=== PATIENT | female | born 1985 | race Caucasian/White ===

== ENCOUNTER 2017-06-12 10:10 | Inpatient (IN) | payer BC ==
[2017-06-12] MEDS ORDERED: Labetalol 100 MG Tab PO ONE (11:20)
[2017-06-12] MEDS ORDERED: Ondansetron 4 MG/2 ML SDV IVPUSH PRN (12:11)
[2017-06-12] MEDS ORDERED: Sodium Chloride 0.9% 10 ML Syringe FLUSH PRN (12:11)
[2017-06-12] MEDS ORDERED: Nalbuphine 20 MG/1 ML Amp IVPUSH PRN (12:11)
[2017-06-12] MEDS ORDERED: Oxytocin/Lactated Ringers 10 UNIT/1,000 ML BAG IV SCH ×2 (12:15→17:00)
--- NOTE | 2017-06-12 12:50 | PCM.LDHP ---
L&D History of Present Illness - General Date of Service: 06/12/17 Admit Problem/Dx: Patient Status Order with Admit Dx/Problem 06/12/17 12:12 Patient Status [ADT] Routine Admission Diagnosis/Problem Admission Diagnosis/Problem Source of Information: Patient History Limitations: Reports: No Limitations - History of Present Illness Introduction:: 32 y/o at 37 0/7 wks who presents for monitoring after findings of elevated BP's in clinic. Patient had late entry into care with this . Was first seen around 28 weeks and is dated by 28 week ultrasound. She was also noted at that first appointment to have elevated blood pressures. When reviewing outpatient walk-in clinic notes done outside of it did seem that she had elevated blood pressures at most of these as well and so was presumed to be a chronic hypertensive. She has been watched closely this with serial ultrasounds and non-stress tests which have been appropriate. Blood pressures have mostly been in the 140s, but today were high 150's over low 100's. She was asymptomatic, but given this change was asked to present to labor and delivery for labs, serial blood pressures, and further monitoring. She is having some contractions as well. Her cervix was checked earlier in clinic and thought to be similar to last outpatient exam. She does have a history of a vaginal delivery followed by a for breech presentation. Delivery after that was a 23 week loss which was delivered vaginally. Records were requested multiple times during her but never able to be received. Lastly is also notable for chronic narcotic use. Patient has a history of shoulder pain which she is typically seen in the pain management clinic in [place]. Has been on [place] throughout the as she did not realize she was . When pain clinic did realize she was at about 37 weeks they did decline further refills and so we have been managing her narcotics and trying to wean them down. She is currently on 2 alternating with 2.5 tablets of a 7.5 mg [place] every other day. She is overall doing well with this. 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: 3 (2 living children) LMP (Approximate): Musculoskeletal History: Reports: Other (See Below) Other Musculoskeletal History: Buldging disc - Past Surgical History Female Surgical History: Reports: Section Social & Family History - Family History Family Medical History: Noncontributory Cardiac: Reports: Hypertension, [place] Endocrine/Metabolic: Reports: Diabetes, type II Oncologic: Reports: Bone, Brain - Tobacco Use Smoking Status *Q: Former Smoker Years of Tobacco use: 15 Packs/Tins Daily: 1 Used Tobacco, but Quit: Yes Month Tobacco Last Used: March Second Hand Smoke Exposure: No - Caffeine Use Caffeine Use: Reports: Soda Other Caffeine Use: Occasional - Alcohol Use Alcohol Use History: No - Recreational Drug Use Recreational Drug Use: No - Living Situation & Occupation Living situation: Reports: Single, with Significant Other, with Family Occupation: Employed H&P Review of Systems - Review of Systems: Review Of Systems: See Below General: Reports: No Symptoms Pulmonary: Reports: No Symptoms Cardiovascular: Reports: No Symptoms Gastrointestinal: Reports: No Symptoms Genitourinary: Reports: No Symptoms Musculoskeletal: Reports: No Symptoms Psychiatric: Reports: No Symptoms L&D Exam - Exam Exam: See Below - Vital Signs Vital Signs: Last Vital Signs Temp 36.6 C 06/12/17 10:44 Pulse 88 06/12/17 11:33 Resp 14 06/12/17 10:44 BP 143/93 H 06/12/17 11:33 Pulse Ox 98 06/12/17 10:44 Weight: 49.895 kg - OB Specific Contraction Intensity: Mild to Moderate Movement: Active Heart Tones: Present Heart Tones per Min: 135 Heart Rate (FHR) Variability: Moderate (6-25 bmp) Presentation: Vertex - Moreno Score Moreno Score Cervix Position: Posterior Moreno Score Consistency: Soft Moreno Score Effacement: 51-70% [place] Score Dilation: 1-2 cm Moreno Score 's Station: -2 Moreno Score Total: 6 - Exam General: Alert, Oriented, Cooperative Lungs: Clear to Auscultation, Normal Respiratory Effort Cardiovascular: Regular Rate, Regular Rhythm GI/Abdominal Exam: Soft, Non-Tender Genitourinary: Normal external exam Extremities: Normal Inspection Skin: Warm, Dry, Intact - Patient Data Lab Results Last 24 hrs: Laboratory Results - last 24 hr 06/12/17 06/12/17 06/12/17 Range/Units 10:30 10:33 10:33 WBC 11.94 H (3.98-10.04) K/mm3 RBC 3.81 L (3.98-5.22) M/mm3 Hgb 12.3 (11.2-15.7) gm/L Hct 35.6 (34.1-44.9) % MCV 93.4 (79.4-94.8) fl MCH 32.3 H (25.6-32.2) pg MCHC 34.6 (32.2-35.5) g/dl RDW Std Deviation 44.0 (36.4-46.3) fL Plt Count 281 (182-369) K/mm3 MPV 9.7 (9.4-12.3) fl Creatinine 0.7 (0.55-1.02) mg/dL Est Cr Clr Drug Dosing 81.34 mL/min Estimated GFR (MDRD) > 60 (>60) mL/min AST 24 (15-37) U/L ALT 26 (14-59) U/L Urine Color Yellow (Yellow) Urine Appearance Clear (Clear) Urine pH 7.0 (5.0-8.0) Ur Specific [place] 1.015 (1.005-1.030) Urine Protein Trace H (Negative) Urine Glucose (UA) Negative (Negative) Urine Ketones Negative (Negative) Urine Occult Blood Trace-lysed H (Negative) Urine Nitrite Negative (Negative) Urine Bilirubin Negative (Negative) Urine Urobilinogen 0.2 (0.2-1.0) Ur Leukocyte Esterase 1+ H (Negative) Urine RBC 0-5 (0-5) /hpf Urine WBC 0-5 (0-5) /hpf Ur Epithelial Cells 0-5 (0-5) /hpf Urine Bacteria Few (FEW) /hpf Urine Mucus Few (FEW) /hpf Result Diagrams: 06/12/17 10:33 06/12/17 10:33 - Problem List (1) 37 weeks gestation of SNOMED Code(s): 38534303 ICD Code: Z3A.37 - 37 WEEKS GESTATION OF Status: Acute Current Visit: Yes (2) Chronic hypertension affecting SNOMED Code(s): 99248979 ICD Code: O10.919 - UNSP PRE-EXISTING HTN COMP , UNSP TRIMESTER Status: Acute Current Visit: Yes (3) History of SNOMED Code(s): 486132296 ICD Code: Z98.891 - HISTORY OF UTERINE SCAR FROM PREVIOUS SURGERY Status: Acute Current Visit: Yes (4) History of SNOMED Code(s): 901668543, 553205541 ICD Code: Z98.891 - HISTORY OF UTERINE SCAR FROM PREVIOUS SURGERY Status: Acute Current Visit: Yes (5) Desires (vaginal after ) trial SNOMED Code(s): 719284797, 231973462 ICD Code: O34.219 - MATERNAL CARE FOR UNSP TYPE SCAR FROM PREVIOUS DEL Status: Acute Current Visit: Yes Problem List Initiated/Reviewed/Updated: Yes Orders Last 24hrs: Active Orders 24 hr Category Date Time Status Patient Status [ADT] Routine ADT 06/12/17 12:12 Active Bedrest Bathroom Privileges [RC] ASDIRECTED Care 06/12/17 12:11 Active Communication Order [RC] ASDIRECTED Care 06/12/17 12:11 Active Monitoring [RC] CONTINUOUS Care 06/12/17 12:11 Active Intake and Output [RC] Q4H Care 06/12/17 12:11 Active Notify Provider Status Change [RC] ASDIRECTED Care 06/12/17 12:11 Active Notify Provider Vital Signs [RC] ASDIRECTED Care 06/12/17 12:11 Active Notify Provider [RC] PRN Care 06/12/17 12:11 Active Oxygen Therapy [RC] PRN Care 06/12/17 12:11 Active Peripheral IV Care [RC] . DIRECTED Care 06/12/17 12:14 Active Vital Signs [RC] ASDIRECTED Care 06/12/17 12:11 Active Regular Diet [DIET] Diet 06/12/17 Dinner Active TYPE AND SCREEN [BBK] Routine Lab 06/12/17 10:33 Received Nalbuphine [Nubain] Med 06/12/17 12:11 Active 10 mg IVPUSH Q2H PRN Ondansetron [Zofran] Med 06/12/17 12:11 Active 4 mg IVPUSH Q4H PRN Oxytocin/Lactated Ringers [Pitocin in LR 10 Units/1,000 Med 06/12/17 12:15 Active ML] 10 unit in 1,000 ml IV .CONTINUOUS Sodium Chloride 0.9% [Saline Flush] Med 06/12/17 12:11 Active 10 ml FLUSH ASDIRECTED PRN Blood Pressure [OM.PC] ASDIRECTED Oth 06/12/17 12:15 Ordered Deep Tendon Reflexes [WOMSER] ASDIRECTED Oth 06/12/17 12:15 Ordered Peripheral IV Insertion Adult [OM.PC] Urgent Oth 06/12/17 12:11 Ordered Resuscitation Status Routine Resus Stat 06/12/17 12:11 Ordered Medication Orders Oxytocin/Lactated Ringer's (Pitocin In Lr 10 Units/1,000 Ml) 10 unit in 1,000 mls @ 500 mls/hr IV .CONTINUOUS TERRY PRN Reason: Protocol Nalbuphine HCl (Nubain) 10 mg IVPUSH Q2H PRN PRN Reason: Pain (moderate 4-6) Ondansetron HCl (Zofran) 4 mg IVPUSH Q4H PRN PRN Reason: Nausea/Vomiting Sodium Chloride (Saline Flush) 10 ml FLUSH ASDIRECTED PRN PRN Reason: Keep Vein Open Assessment/Plan Comment:: 32 y/o at 37 0/7 wks presented from clinic for worsening BP's. While here has had several systolic values > 160 and several diastolic values > 100. Will keep for IOL for worsening CHTN vs superimposed preeclampsia. Labs done and WNL. Will treat with 400 mg of oral labetalol now as most recent values of BP's in the upper 150's and severe range pressures not sustained. Discussed possible initiation of magnesium. AROM done for now. Consider pitocin augmentation if necessary. Patient has history of successful vaginal delivery and then for breech. Aware of risks/benefits of TOLAC. Pediatric team made aware of patient's admission and chronic narcotic use in . Patient previously made aware of potential risks for withdrawal in baby. Karey Ribera MD
--- NOTE | 2017-06-12 16:55 | PCM.PNLD ---
Labor Progress Note - VS & Meds Vital Signs: Last Vital Signs Temp 36.6 C 06/12/17 10:44 Pulse 88 06/12/17 11:33 Resp 14 06/12/17 10:44 BP 143/93 H 06/12/17 11:33 Pulse Ox 98 06/12/17 10:44 Active Medications: Current Medications Oxytocin/Lactated Ringer's (Pitocin In Lr 10 Units/1,000 Ml) 10 unit in 1,000 mls @ 500 mls/hr IV .CONTINUOUS TERRY PRN Reason: Protocol Oxytocin/Lactated Ringer's (Pitocin In Lr 10 Units/1,000 Ml) 10 unit in 1,000 mls @ 12 mls/hr IV TITRATE TERRY; 2 MUNITS/MIN PRN Reason: Protocol Nalbuphine HCl (Nubain) 10 mg IVPUSH Q2H PRN PRN Reason: Pain (moderate 4-6) Ondansetron HCl (Zofran) 4 mg IVPUSH Q4H PRN PRN Reason: Nausea/Vomiting Sodium Chloride (Saline Flush) 10 ml FLUSH ASDIRECTED PRN PRN Reason: Keep Vein Open Discontinued Medications Labetalol HCl (Normodyne) 400 mg PO ONETIME ONE Stop: 06/12/17 11:21 Last Admin: 06/12/17 11:33 Dose: 400 mg - Uterine Contractions Uterine Monitoring Mode: External [place] Contraction Intensity: Mild to Moderate - Monitoring Monitor Mode: External Ultrasound Heart Rate (FHR) Baseline: 135 Heart Rate (FHR) Variability: Moderate (6-25 bmp) Accelerations: Present, 15x15 Decelerations: None Strip Review: Category I - Labor Progress (Free Text) Labor Progress: Doing well. Not having very frequent contractions. Will start pitocin for augmentation. BP's responded well to labetalol dose. Will likely decrease dose for next administration. Continue plan otherwise
[2017-06-12] MEDS: Lactated Ringers 1,000 ML IV SCH (17:10)
[2017-06-12] MEDS ORDERED: Acetaminophen/HYDROcodone 325-5 MG Tab PO ONE (19:33)
--- NOTE | 2017-06-12 19:37 | PCM.PNLD ---
Labor Progress Note - VS & Meds Vital Signs: Last Vital Signs Temp 36.6 C 06/12/17 10:44 Pulse 88 06/12/17 11:33 Resp 14 06/12/17 10:44 BP 143/93 H 06/12/17 11:33 Pulse Ox 98 06/12/17 10:44 Active Medications: Current Medications Hydrocodone Bitart/Acetaminophen ([place] 325-5 Mg) 1 tab PO ONETIME ONE Stop: 06/12/17 19:34 Oxytocin/Lactated Ringer's (Pitocin In Lr 10 Units/1,000 Ml) 10 unit in 1,000 mls @ 500 mls/hr IV .CONTINUOUS TERRY PRN Reason: Protocol Oxytocin/Lactated Ringer's (Pitocin In Lr 10 Units/1,000 Ml) 10 unit in 1,000 mls @ 12 mls/hr IV TITRATE TERRY; 2 MUNITS/MIN PRN Reason: Protocol Last Titration: 06/12/17 18:27 Dose: 2 munits/min, 12 mls/hr Lactated Ringer's (Ringers, Lactated) 1,000 mls @ 100 mls/hr IV ASDIRECTED TERRY Last Admin: 06/12/17 17:10 Dose: 100 mls/hr Nalbuphine HCl (Nubain) 10 mg IVPUSH Q2H PRN PRN Reason: Pain (moderate 4-6) Ondansetron HCl (Zofran) 4 mg IVPUSH Q4H PRN PRN Reason: Nausea/Vomiting Sodium Chloride (Saline Flush) 10 ml FLUSH ASDIRECTED PRN PRN Reason: Keep Vein Open Discontinued Medications Labetalol HCl (Normodyne) 400 mg PO ONETIME ONE Stop: 06/12/17 11:21 Last Admin: 06/12/17 11:33 Dose: 400 mg - Uterine Contractions Uterine Monitoring Mode: External [place] Contraction Intensity: Mild to Moderate - Monitoring Monitor Mode: External Ultrasound Heart Rate (FHR) Baseline: 135 Heart Rate (FHR) Variability: Moderate (6-25 bmp) Accelerations: Present, 15x15 Decelerations: Variable, Intermittent (<50% x 20 min) Strip Review: Category II - Labor Progress (Free Text) Labor Progress: Called by nursing due to patient with complaints of MARTINEZ. Went in to assess patient. She hasn't taken her [place] all day. BP's are actually normal. Question whether MARTINEZ is due to this more normal BP and also potentially withdrawal. Will give a 1 time dose of 5 mg [place]. Reassess afterwards. Pitocin was up to 4, but decreased to 2 at 1800 due to a few variables. Monitor now appropriate. Will increase to 3.
[2017-06-13] MEDS: Lactated Ringers 1,000 ML IV SCH ×2 (00:36→06:46)
--- NOTE | 2017-06-13 01:01 | PCM.PNLD ---
Labor Progress Note - VS & Meds Vital Signs: Last Vital Signs Temp 36.6 C 06/12/17 10:44 Pulse 88 06/12/17 11:33 Resp 14 06/12/17 10:44 BP 143/93 H 06/12/17 11:33 Pulse Ox 98 06/12/17 10:44 Active Medications: Current Medications Oxytocin/Lactated Ringer's (Pitocin In Lr 10 Units/1,000 Ml) 10 unit in 1,000 mls @ 500 mls/hr IV .CONTINUOUS TERRY PRN Reason: Protocol Oxytocin/Lactated Ringer's (Pitocin In Lr 10 Units/1,000 Ml) 10 unit in 1,000 mls @ 12 mls/hr IV TITRATE TERRY; 2 MUNITS/MIN PRN Reason: Protocol Last Titration: 06/12/17 19:45 Dose: 3 munits/min, 18 mls/hr Lactated Ringer's (Ringers, Lactated) 1,000 mls @ 100 mls/hr IV ASDIRECTED TERRY Last Admin: 06/13/17 00:36 Dose: 100 mls/hr Nalbuphine HCl (Nubain) 10 mg IVPUSH Q2H PRN PRN Reason: Pain (moderate 4-6) Ondansetron HCl (Zofran) 4 mg IVPUSH Q4H PRN PRN Reason: Nausea/Vomiting Sodium Chloride (Saline Flush) 10 ml FLUSH ASDIRECTED PRN PRN Reason: Keep Vein Open Discontinued Medications Hydrocodone Bitart/Acetaminophen ([place] 325-5 Mg) 1 tab PO ONETIME ONE Stop: 06/12/17 19:34 Last Admin: 06/12/17 19:43 Dose: 1 tab Labetalol HCl (Normodyne) 400 mg PO ONETIME ONE Stop: 06/12/17 11:21 Last Admin: 06/12/17 11:33 Dose: 400 mg - Uterine Contractions Uterine Monitoring Mode: External [place] Contraction Intensity: Mild to Moderate - Monitoring Monitor Mode: External Ultrasound Heart Rate (FHR) Baseline: 125 Heart Rate (FHR) Variability: Moderate (6-25 bmp) Accelerations: Present, 15x15 Decelerations: Variable, Intermittent (<50% x 20 min) Strip Review: Category II - Vaginal Exam Dilation (cm): 3 Effacement (Percent): 50 Station: -1 Cervical Position: Midposition - Labor Progress (Free Text) Labor Progress: Patient pitocin at 5. Has periods of frequent contractions and then periods of spacing. Rates pain as a 5/10. Cervix overall similar since last exam. Pitocin has been going since about 0500, 8 hours ago. Continue present management.
--- NOTE | 2017-06-13 07:01 | PCM.PNLD ---
Labor Progress Note - VS & Meds Vital Signs: Last Vital Signs Temp 36.6 C 06/12/17 10:44 Pulse 88 06/12/17 11:33 Resp 14 06/12/17 10:44 BP 143/93 H 06/12/17 11:33 Pulse Ox 98 06/12/17 10:44 Active Medications: Current Medications Oxytocin/Lactated Ringer's (Pitocin In Lr 10 Units/1,000 Ml) 10 unit in 1,000 mls @ 500 mls/hr IV .CONTINUOUS TERRY PRN Reason: Protocol Oxytocin/Lactated Ringer's (Pitocin In Lr 10 Units/1,000 Ml) 10 unit in 1,000 mls @ 12 mls/hr IV TITRATE TERRY; 2 MUNITS/MIN PRN Reason: Protocol Last Titration: 06/13/17 06:28 Dose: 8 munits/min, 48 mls/hr Lactated Ringer's (Ringers, Lactated) 1,000 mls @ 100 mls/hr IV ASDIRECTED TERRY Last Admin: 06/13/17 06:46 Dose: 100 mls/hr Nalbuphine HCl (Nubain) 10 mg IVPUSH Q2H PRN PRN Reason: Pain (moderate 4-6) Ondansetron HCl (Zofran) 4 mg IVPUSH Q4H PRN PRN Reason: Nausea/Vomiting Sodium Chloride (Saline Flush) 10 ml FLUSH ASDIRECTED PRN PRN Reason: Keep Vein Open Discontinued Medications Hydrocodone Bitart/Acetaminophen ([place] 325-5 Mg) 1 tab PO ONETIME ONE Stop: 06/12/17 19:34 Last Admin: 06/12/17 19:43 Dose: 1 tab Labetalol HCl (Normodyne) 400 mg PO ONETIME ONE Stop: 06/12/17 11:21 Last Admin: 06/12/17 11:33 Dose: 400 mg - Uterine Contractions Uterine Monitoring Mode: External [place] Contraction Intensity: Moderate - Monitoring Monitor Mode: External Ultrasound Heart Rate (FHR) Baseline: 135 Heart Rate (FHR) Variability: Moderate (6-25 bmp) Accelerations: Present, 15x15 Decelerations: Variable, Intermittent (<50% x 20 min) Strip Review: Category II - Vaginal Exam Dilation (cm): 4 Effacement (Percent): 70 Station: -1 Cervical Position: Midposition - Labor Progress (Free Text) Labor Progress: Patient pitocin up to 9 before 0600. For about 30 minutes then had some recurrent deep variables. Pitocin decreased to 8 with resolution of these changes. Will attempt to increase again in another 30-60 minutes. Patient now ruptured about 18 hours, but no signs of infection. Continue present management. BP's now more mild range. Defer additional anti-hypertensives currently. Patient again with headache and some signs of withdrawal. Will give an additional dose of [place] right now.
[2017-06-13] MEDS ORDERED: Acetaminophen/HYDROcodone 325-5 MG Tab PO ONE ×2 (07:02→12:14)
[2017-06-13] MEDS ORDERED: fentaNYL 100 MCG/2 ML SDV EPIDUR PRN (08:28)
[2017-06-13] MEDS ORDERED: diphenhydrAMINE 50 MG/ML SDV IVPUSH PRN (08:28)
[2017-06-13] MEDS ORDERED: ePHEDrine 50 MG/ML SDV IVPUSH PRN (08:28)
[2017-06-13] MEDS ORDERED: Bupivacaine/fentaNYL/NS 100 ML Bag EPIDUR SCH (08:30)
--- NOTE | 2017-06-13 08:58 | PCM.PREANE ---
Preanesthetic Assessment - Anesthesia/Transfusion/Family Hx Anesthesia History: Prior Anesthesia Without Reaction Family History of Anesthesia Reaction: No Transfusion History: No Prior Transfusion(s) - Review of Systems General: No Symptoms Pulmonary: No Symptoms Cardiovascular: No Symptoms Gastrointestinal: No Symptoms Neurological: Numbness (right arm and hand) Other: Reports: None - Physical Assessment Pulse: 88 O2 Sat by Pulse Oximetry: 98 Respiratory Rate: 14 Blood Pressure: 143/93 Vital Signs: Last Vital Signs Temp 36.6 C 06/12/17 10:44 Pulse 88 06/12/17 11:33 Resp 14 06/12/17 10:44 BP 143/93 H 06/12/17 11:33 Pulse Ox 98 06/12/17 10:44 Height: 1.52 m Weight: 49.895 kg ASA Class: 2 Mental Status: Alert & Oriented x3 Airway Class: Mallampati = 1 Dentition: Reports: Normal Dentition Thyro-Mental Finger Breadths: 3 Mouth Opening Finger Breadths: 3 ROM/Head Extension: Full Lungs: Clear to Auscultation, Normal Respiratory Effort Cardiovascular: Regular Rate, Regular Rhythm - Lab Values: Laboratory Last Values WBC 11.94 K/mm3 (3.98-10.04) H 06/12/17 10:33 RBC 3.81 M/mm3 (3.98-5.22) L 06/12/17 10:33 Hgb 12.3 gm/L (11.2-15.7) 06/12/17 10:33 Hct 35.6 % (34.1-44.9) 06/12/17 10:33 MCV 93.4 fl (79.4-94.8) 06/12/17 10:33 MCH 32.3 pg (25.6-32.2) H 06/12/17 10:33 MCHC 34.6 g/dl (32.2-35.5) 06/12/17 10:33 RDW Std Deviation 44.0 fL (36.4-46.3) 06/12/17 10:33 Plt Count 281 K/mm3 (182-369) 06/12/17 10:33 MPV 9.7 fl (9.4-12.3) 06/12/17 10:33 Creatinine 0.7 mg/dL (0.55-1.02) 06/12/17 10:33 Est Cr Clr Drug Dosing 81.34 mL/min 06/12/17 10:33 Estimated GFR (MDRD) > 60 mL/min (>60) 06/12/17 10:33 AST 24 U/L (15-37) 06/12/17 10:33 ALT 26 U/L (14-59) 06/12/17 10:33 Urine Color Yellow (Yellow) 06/12/17 10:30 Urine Appearance Clear (Clear) 06/12/17 10:30 Urine pH 7.0 (5.0-8.0) 06/12/17 10:30 Ur Specific [place] 1.015 (1.005-1.030) 06/12/17 10:30 Urine Protein Trace (Negative) H 06/12/17 10:30 Urine Glucose (UA) Negative (Negative) 06/12/17 10:30 Urine Ketones Negative (Negative) 06/12/17 10:30 Urine Occult Blood Trace-lysed (Negative) H 06/12/17 10:30 Urine Nitrite Negative (Negative) 06/12/17 10:30 Urine Bilirubin Negative (Negative) 06/12/17 10:30 Urine Urobilinogen 0.2 (0.2-1.0) 06/12/17 10:30 Ur Leukocyte Esterase 1+ (Negative) H 06/12/17 10:30 Urine RBC 0-5 /hpf (0-5) 06/12/17 10:30 Urine WBC 0-5 /hpf (0-5) 06/12/17 10:30 Ur Epithelial Cells 0-5 /hpf (0-5) 06/12/17 10:30 Urine Bacteria Few /hpf (FEW) 06/12/17 10:30 Urine Mucus Few /hpf (FEW) 06/12/17 10:30 Blood Type O POSITIVE 06/12/17 10:33 Gel Antibody Screen Negative 06/12/17 10:33 - Allergies Allergies/Adverse Reactions: Allergies Allergy/AdvReac Type Severity Reaction Status Date / Time cyclobenzaprine HCl AdvReac Tachycardia Verified 06/12/17 12:19 [From Flexeril] morphine AdvReac Nausea and Verified 06/12/17 12:19 Vomiting - Anesthesia Plan Pre-Op Medication Ordered: None - Acknowledgements Anesthesia Type Planned: Epidural Pt an Appropriate Candidate for the Planned Anesthesia: Yes Alternatives and Risks of Anesthesia Discussed w Pt/Guardian: Yes Pt/Guardian Understands and Agrees with Anesthesia Plan: Yes 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: Musculoskeletal History: Reports: Other (See Below) Other Musculoskeletal History: Buldging disc - Past Surgical History Female Surgical History: Reports: Section - SUBSTANCE USE Smoking Status *Q: Former Smoker Tobacco Use Within Last Twelve Months: Cigarettes Second Hand Smoke Exposure: No Recreational Drug Use History: No - HOME MEDS Home Medications: Home Meds Hydrocodone/Acetaminophen [Hydrocodon-Acetaminoph 7.5-325] 1 tab PO Q6H PRN [History] - CURRENT (IN HOUSE) MEDS Current Meds: Current Medications Diphenhydramine HCl (Benadryl) 25 mg IVPUSH Q6H PRN PRN Reason: Itching Ephedrine Sulfate (Ephedrine Sulfate) 5 mg IVPUSH ASDIRECTED PRN PRN Reason: HYPOTENTSION Fentanyl (Sublimaze) 100 mcg EPIDUR Q3H PRN PRN Reason: PAIN Last Admin: 06/13/17 08:52 Dose: 100 mcg Fentanyl/Bupivacaine HCl (Fentanyl/Bupivacaine/Ns 2 Mcg-0.125% 100 Ml) 100 ml EPIDUR ASDIRECTED TERRY Last Admin: 06/13/17 08:53 Dose: 100 ml Oxytocin/Lactated Ringer's (Pitocin In Lr 10 Units/1,000 Ml) 10 unit in 1,000 mls @ 500 mls/hr IV .CONTINUOUS TERRY PRN Reason: Protocol Oxytocin/Lactated Ringer's (Pitocin In Lr 10 Units/1,000 Ml) 10 unit in 1,000 mls @ 12 mls/hr IV TITRATE TERRY; 2 MUNITS/MIN PRN Reason: Protocol Last Titration: 06/13/17 08:00 Dose: 10 munits/min, 60 mls/hr Lactated Ringer's (Ringers, Lactated) 1,000 mls @ 100 mls/hr IV ASDIRECTED TERRY Last Admin: 06/13/17 06:46 Dose: 100 mls/hr Nalbuphine HCl (Nubain) 10 mg IVPUSH Q2H PRN PRN Reason: Pain (moderate 4-6) Ondansetron HCl (Zofran) 4 mg IVPUSH Q4H PRN PRN Reason: Nausea/Vomiting Sodium Chloride (Saline Flush) 10 ml FLUSH ASDIRECTED PRN PRN Reason: Keep Vein Open Discontinued Medications Hydrocodone Bitart/Acetaminophen ([place] 325-5 Mg) 1 tab PO ONETIME ONE Stop: 06/12/17 19:34 Last Admin: 06/12/17 19:43 Dose: 1 tab Hydrocodone Bitart/Acetaminophen ([place] 325-5 Mg) 1 tab PO ONETIME ONE Stop: 06/13/17 07:03 Last Admin: 06/13/17 07:25 Dose: 1 tab Labetalol HCl (Normodyne) 400 mg PO ONETIME ONE Stop: 06/12/17 11:21 Last Admin: 06/12/17 11:33 Dose: 400 mg
--- NOTE | 2017-06-13 10:28 | PCM.SN ---
- Free Text/Narrative Note: Patient more uncomfortable and received an epidural in early AM. Shortly after this, about 9:00, started to have presence of recurrent variables. Nursing discontinued Pitocin from 10. I presented at 9:41 and placed an IUPC. Pitocin at that time restarted at 2. Still with some variables after this and so at 1005 called nursing and asked him to start an amnioinfusion. Patient aware we will assess baby's response to this intervention. If variables continue or deepen or baby status otherwise concerning may need to consider moving on to a C -section. She expressed understanding of this. Also informed her it is her right to request a any point in time. She also expressed understanding of this and would like to continue for now with attempted vaginal delivery. Karey Ribera MD
[2017-06-13] MEDS: Sodium Chloride 0.9% 1,000 ML ONE (10:30)
[2017-06-13] MEDS ORDERED: Metoclopramide 10 MG/2 ML SDV IVPUSH ONE (10:42)
[2017-06-13] MEDS ORDERED: Citric Acid/Sodium Citrate Solution 30 ML Cup PO ONE (10:42)
[2017-06-13] MEDS ORDERED: ceFAZolin 2 GM in Premix Bag 1 BAG IV ONE (10:42)
--- NOTE | 2017-06-13 12:17 | PCM.PNLD ---
Labor Progress Note - VS & Meds Vital Signs: Last Vital Signs Temp 36.6 C 06/12/17 10:44 Pulse 88 06/13/17 08:58 Resp 14 06/13/17 08:58 BP 143/93 H 06/13/17 08:58 Pulse Ox 98 06/13/17 08:58 Active Medications: Current Medications Diphenhydramine HCl (Benadryl) 25 mg IVPUSH Q6H PRN PRN Reason: Itching Ephedrine Sulfate (Ephedrine Sulfate) 5 mg IVPUSH ASDIRECTED PRN PRN Reason: HYPOTENTSION Fentanyl (Sublimaze) 100 mcg EPIDUR Q3H PRN PRN Reason: PAIN Last Admin: 06/13/17 08:52 Dose: 100 mcg Fentanyl/Bupivacaine HCl (Fentanyl/Bupivacaine/Ns 2 Mcg-0.125% 100 Ml) 100 ml EPIDUR ASDIRECTED TERRY Last Admin: 06/13/17 08:53 Dose: 100 ml Oxytocin/Lactated Ringer's (Pitocin In Lr 10 Units/1,000 Ml) 10 unit in 1,000 mls @ 500 mls/hr IV .CONTINUOUS TERRY PRN Reason: Protocol Oxytocin/Lactated Ringer's (Pitocin In Lr 10 Units/1,000 Ml) 10 unit in 1,000 mls @ 12 mls/hr IV TITRATE TERRY; 2 MUNITS/MIN PRN Reason: Protocol Last Titration: 06/13/17 08:00 Dose: 10 munits/min, 60 mls/hr Lactated Ringer's (Ringers, Lactated) 1,000 mls @ 100 mls/hr IV ASDIRECTED TERRY Last Admin: 06/13/17 06:46 Dose: 100 mls/hr Nalbuphine HCl (Nubain) 10 mg IVPUSH Q2H PRN PRN Reason: Pain (moderate 4-6) Ondansetron HCl (Zofran) 4 mg IVPUSH Q4H PRN PRN Reason: Nausea/Vomiting Sodium Chloride (Saline Flush) 10 ml FLUSH ASDIRECTED PRN PRN Reason: Keep Vein Open Discontinued Medications Hydrocodone Bitart/Acetaminophen ([place] 325-5 Mg) 1 tab PO ONETIME ONE Stop: 06/12/17 19:34 Last Admin: 06/12/17 19:43 Dose: 1 tab Hydrocodone Bitart/Acetaminophen ([place] 325-5 Mg) 1 tab PO ONETIME ONE Stop: 06/13/17 07:03 Last Admin: 06/13/17 07:25 Dose: 1 tab Citric Acid/Sodium Citrate (Bicitra Solution) 30 ml PO ONETIME ONE Stop: 06/13/17 10:43 Sodium Chloride (Normal Saline) Confirm Administered Dose 1,000 mls @ as directed .ROUTE .STK-MED ONE Stop: 06/13/17 10:12 Cefazolin Sodium/Dextrose 2 gm (/ Premix) 50 mls @ 100 mls/hr IV ONETIME ONE Stop: 06/13/17 11:11 Labetalol HCl (Normodyne) 400 mg PO ONETIME ONE Stop: 06/12/17 11:21 Last Admin: 06/12/17 11:33 Dose: 400 mg Metoclopramide HCl (Reglan) 10 mg IVPUSH ONETIME ONE Stop: 06/13/17 10:43 - Uterine Contractions Uterine Monitoring Mode: External [place] Contraction Intensity: Moderate - Monitoring Monitor Mode: External Ultrasound Heart Rate (FHR) Baseline: 140 Heart Rate (FHR) Variability: Moderate (6-25 bmp) Accelerations: Present, 15x15 Decelerations: None Strip Review: Category I - Vaginal Exam Dilation (cm): 5 Effacement (Percent): 80 Station: 0 Cervical Position: Midposition - Labor Progress (Free Text) Labor Progress: On pitocin of 6. Variables resolved with amnioinfusion. Continue to increase per protocol. Cervix much more anterior and more dilated since last exam. Patient complaints of nausea and feeling unwell. Question whether withdrawal like symptoms. Will order another 1 tab of [place].
--- NOTE | 2017-06-13 15:57 | PCM.DEL ---
L & D Note - General Info Date of Service: 06/13/17 - Delivery Note Labor: Induced by ARM, Induced by Oxytocin Delivery Outcome: Livebirth Infant Delivery Method: Spontaneous Vaginal Delivery Infant Delivery Mode: Spontaneous Presentation: Right Occiput Anterior (DIANNA) Nuchal Cord: Present, Reduced Anesthesia Type: Epidural Amniotic Fluid Description: Clear Episiotomy Type: None Laceration: None Placenta: Intact, Spontaneous Cord: 3 Vessels Estimated Blood Loss: 250 Resuscitation Needed: Yes [place]: Suctioned, Stimulated, Warmed, [place] Used, Warmer Used Score 1 min: 9 Score 5 min: 9 Delivery Comments (Free Text/Narrative):: Patient found to be complete and began pushing. With maternal pushing effort head delivered from an DIANNA presentation. Tight nuchal cord present and reduced. With gentle downward traction the shoulders and body delivered. Infant placed on maternal abdomen. Cord clamped and cut. Cord blood obtained. Placenta allowed time to separate and then spontaneously expelled. Inspection of the perineum showed no lacerations - Patient Data Vitals - most recent: Last Vital Signs Temp 36.6 C 06/12/17 10:44 Pulse 88 06/13/17 08:58 Resp 14 06/13/17 08:58 BP 143/93 H 06/13/17 08:58 Pulse Ox 98 06/13/17 08:58 Weight - most recent: 49.895 kg I&O - last 24 hours: Intake & Output 06/13/17 06/13/17 06/13/17 06:59 14:59 22:59 Intake Total 360 Balance 360 Med Orders - Current: Current Medications Diphenhydramine HCl (Benadryl) 25 mg IVPUSH Q6H PRN PRN Reason: Itching Ephedrine Sulfate (Ephedrine Sulfate) 5 mg IVPUSH ASDIRECTED PRN PRN Reason: HYPOTENTSION Fentanyl (Sublimaze) 100 mcg EPIDUR Q3H PRN PRN Reason: PAIN Last Admin: 06/13/17 08:52 Dose: 100 mcg Fentanyl/Bupivacaine HCl (Fentanyl/Bupivacaine/Ns 2 Mcg-0.125% 100 Ml) 100 ml EPIDUR ASDIRECTED TERRY Last Admin: 06/13/17 08:53 Dose: 100 ml Oxytocin/Lactated Ringer's (Pitocin In Lr 10 Units/1,000 Ml) 10 unit in 1,000 mls @ 500 mls/hr IV .CONTINUOUS TERRY PRN Reason: Protocol Oxytocin/Lactated Ringer's (Pitocin In Lr 10 Units/1,000 Ml) 10 unit in 1,000 mls @ 12 mls/hr IV TITRATE TERRY; 2 MUNITS/MIN PRN Reason: Protocol Last Titration: 06/13/17 08:00 Dose: 10 munits/min, 60 mls/hr Lactated Ringer's (Ringers, Lactated) 1,000 mls @ 100 mls/hr IV ASDIRECTED TERRY Last Admin: 06/13/17 06:46 Dose: 100 mls/hr Nalbuphine HCl (Nubain) 10 mg IVPUSH Q2H PRN PRN Reason: Pain (moderate 4-6) Ondansetron HCl (Zofran) 4 mg IVPUSH Q4H PRN PRN Reason: Nausea/Vomiting Sodium Chloride (Saline Flush) 10 ml FLUSH ASDIRECTED PRN PRN Reason: Keep Vein Open Discontinued Medications Hydrocodone Bitart/Acetaminophen ([place] 325-5 Mg) 1 tab PO ONETIME ONE Stop: 06/12/17 19:34 Last Admin: 06/12/17 19:43 Dose: 1 tab Hydrocodone Bitart/Acetaminophen ([place] 325-5 Mg) 1 tab PO ONETIME ONE Stop: 06/13/17 07:03 Last Admin: 06/13/17 07:25 Dose: 1 tab Hydrocodone Bitart/Acetaminophen ([place] 325-5 Mg) 1 tab PO ONETIME ONE Stop: 06/13/17 12:15 Last Admin: 06/13/17 12:26 Dose: 1 tab Citric Acid/Sodium Citrate (Bicitra Solution) 30 ml PO ONETIME ONE Stop: 06/13/17 10:43 Sodium Chloride (Normal Saline) Confirm Administered Dose 1,000 mls @ as directed .ROUTE .STK-MED ONE Stop: 06/13/17 10:12 Last Admin: 06/13/17 10:30 Dose: 125 ml Cefazolin Sodium/Dextrose 2 gm (/ Premix) 50 mls @ 100 mls/hr IV ONETIME ONE Stop: 06/13/17 11:11 Labetalol HCl (Normodyne) 400 mg PO ONETIME ONE Stop: 06/12/17 11:21 Last Admin: 06/12/17 11:33 Dose: 400 mg Metoclopramide HCl (Reglan) 10 mg IVPUSH ONETIME ONE Stop: 06/13/17 10:43 Last Admin: 06/13/17 12:26 Dose: 10 mg - Problem List & Annotations (1) 37 weeks gestation of SNOMED Code(s): 26863399 Code(s): Z3A.37 - 37 WEEKS GESTATION OF Status: Acute Current Visit: Yes (2) Chronic hypertension affecting SNOMED Code(s): 07606411 Code(s): O10.919 - UNSP PRE-EXISTING HTN COMP , UNSP TRIMESTER Status: Acute Current Visit: Yes (3) History of SNOMED Code(s): 467922639 Code(s): Z98.891 - HISTORY OF UTERINE SCAR FROM PREVIOUS SURGERY Status: Acute Current Visit: Yes (4) History of SNOMED Code(s): 601513264, 737719907 Code(s): Z98.891 - HISTORY OF UTERINE SCAR FROM PREVIOUS SURGERY Status: Acute Current Visit: Yes (5) Desires (vaginal after ) trial SNOMED Code(s): 486463418, 117850690 Code(s): O34.219 - MATERNAL CARE FOR UNSP TYPE SCAR FROM PREVIOUS DEL Status: Acute Current Visit: Yes (6) , delivered, current hospitalization SNOMED Code(s): 550367630 Code(s): O34.219 - MATERNAL CARE FOR UNSP TYPE SCAR FROM PREVIOUS DEL Status: Acute Current Visit: Yes - Problem List Review Problem List Initiated/Reviewed/Updated: Yes - My Orders Last 24 Hours: My Active Orders 06/12/17 17:00 Lactated Ringers [Ringers, Lactated] 1,000 ml IV ASDIRECTED Oxytocin/Lactated Ringers [Pitocin in LR 10 Units/1,000 ML] 10 unit in 1,000 ml IV TITRATE 06/12/17 Dinner Regular Diet [DIET] 06/13/17 10:42 Procedure Site Prep Instruct [RC] ASDIRECTED Verify Patient Consent Obtain [RC] PER UNIT ROUTINE Schedule Procedure [COMM] Per Unit Routine 06/13/17 15:54 Patient Status Manage Transfer [TRANSFER] Routine 06/13/17 Dinner Regular Diet [DIET] - Assessment Assessment:: 32 y/o G4 now P3103 PPD#0 from at 37 0/7 wks - Plan Plan:: CHTN * Patient with greater than expected response to previous dose of labetalol. Will monitor for now and consider additional antihypertensives as needed Chronic Narcotic Use * Continue home [place]. Will have patient follow up with Pain Clinic after delivery S/p * Routine cares * Encourage breast feeding * Discharge home in 2 days Karey Ribera MD
[2017-06-13] MEDS ORDERED: Docusate Sodium 100 MG Cap PO PRN (17:37)
[2017-06-13] MEDS ORDERED: Benzocaine/Menthol 20%-0.5% Spray 56 GM Canister TOP PRN (17:37)
[2017-06-13] MEDS ORDERED: Witch Hazel Medicated Pads 100/Jar TOP PRN (17:37)
[2017-06-13] MEDS ORDERED: Ibuprofen 600 MG Tab PO PRN (17:37)
[2017-06-13] MEDS: Acetaminophen/HYDROcodone 325-5 MG Tab PO PRN (21:25)
[2017-06-13] MEDS ORDERED: Labetalol 100 MG Tab PO ONE (22:20)
[2017-06-13] MEDS ORDERED: Bupivacaine 0.25% 10 ML SDV ONE (22:22)
[2017-06-14] MEDS: Acetaminophen/HYDROcodone 325-5 MG Tab PO PRN ×3 (04:08→20:43)
--- NOTE | 2017-06-14 07:42 | PCM.PNPP ---
- General Info Date of Service: 06/14/17 Functional Status: Reports: Pain Controlled, Tolerating Diet, Ambulating, Urinating - Review of Systems General: Reports: No Symptoms Pulmonary: Reports: No Symptoms Cardiovascular: Reports: No Symptoms Gastrointestinal: Reports: Abdominal Pain Genitourinary: Reports: No Symptoms Musculoskeletal: Reports: No Symptoms - Patient Data Vital Signs - most recent: Last Vital Signs Temp 36.8 C 06/14/17 06:06 Pulse 74 06/14/17 06:06 Resp 18 06/14/17 06:06 BP 129/76 06/14/17 06:10 Pulse Ox 97 06/14/17 06:06 Weight - most recent: 49.895 kg I&O - last 24 hours: Intake & Output 06/13/17 06/14/17 06/14/17 22:59 06:59 14:59 Intake Total 740 Balance 740 Med Orders - Current: Current Medications Hydrocodone Bitart/Acetaminophen ([place] 325-5 Mg) 1 tab PO Q6H PRN PRN Reason: Pain (moderate 4-6) Last Admin: 06/14/17 04:08 Dose: 1 tab Benzocaine/Menthol (Dermoplast Pain Relief [place]) 0 gm TOP ASDIRECTED PRN PRN Reason: Perineal Comfort Measure Docusate Sodium (Colace) 100 mg PO BID PRN PRN Reason: Constipation Ibuprofen (Motrin) 600 mg PO Q6H PRN PRN Reason: Mild pain or fever Witch Val (Tucks) 1 pad TOP ASDIRECTED PRN PRN Reason: Hemorrhoid pain Discontinued Medications Hydrocodone Bitart/Acetaminophen ([place] 325-5 Mg) 1 tab PO ONETIME ONE Stop: 06/12/17 19:34 Last Admin: 06/12/17 19:43 Dose: 1 tab Hydrocodone Bitart/Acetaminophen ([place] 325-5 Mg) 1 tab PO ONETIME ONE Stop: 06/13/17 07:03 Last Admin: 06/13/17 07:25 Dose: 1 tab Hydrocodone Bitart/Acetaminophen ([place] 325-5 Mg) 1 tab PO ONETIME ONE Stop: 06/13/17 12:15 Last Admin: 06/13/17 12:26 Dose: 1 tab Citric Acid/Sodium Citrate (Bicitra Solution) 30 ml PO ONETIME ONE Stop: 06/13/17 10:43 Last Admin: 06/14/17 07:23 Dose: Not Given Diphenhydramine HCl (Benadryl) 25 mg IVPUSH Q6H PRN PRN Reason: Itching Ephedrine Sulfate (Ephedrine Sulfate) 5 mg IVPUSH ASDIRECTED PRN PRN Reason: HYPOTENTSION Fentanyl (Sublimaze) 100 mcg EPIDUR Q3H PRN PRN Reason: PAIN Last Admin: 06/13/17 08:52 Dose: 100 mcg Fentanyl/Bupivacaine HCl (Fentanyl/Bupivacaine/Ns 2 Mcg-0.125% 100 Ml) 100 ml EPIDUR ASDIRECTED TERRY Last Admin: 06/13/17 08:53 Dose: 100 ml Oxytocin/Lactated Ringer's (Pitocin In Lr 10 Units/1,000 Ml) 10 unit in 1,000 mls @ 500 mls/hr IV .CONTINUOUS TERRY PRN Reason: Protocol Oxytocin/Lactated Ringer's (Pitocin In Lr 10 Units/1,000 Ml) 10 unit in 1,000 mls @ 12 mls/hr IV TITRATE TERRY; 2 MUNITS/MIN PRN Reason: Protocol Last Titration: 06/13/17 08:00 Dose: 10 munits/min, 60 mls/hr Lactated Ringer's (Ringers, Lactated) 1,000 mls @ 100 mls/hr IV ASDIRECTED TERRY Last Admin: 06/13/17 06:46 Dose: 100 mls/hr Sodium Chloride (Normal Saline) Confirm Administered Dose 1,000 mls @ as directed .ROUTE .STK-MED ONE Stop: 06/13/17 10:12 Last Admin: 06/13/17 10:30 Dose: 125 ml Cefazolin Sodium/Dextrose 2 gm (/ Premix) 50 mls @ 100 mls/hr IV ONETIME ONE Stop: 06/13/17 11:11 Last Admin: 06/14/17 07:24 Dose: Not Given Labetalol HCl (Normodyne) 400 mg PO ONETIME ONE Stop: 06/12/17 11:21 Last Admin: 06/12/17 11:33 Dose: 400 mg Labetalol HCl (Normodyne) 100 mg PO ONETIME ONE Stop: 06/13/17 22:21 Last Admin: 06/13/17 22:30 Dose: 100 mg Metoclopramide HCl (Reglan) 10 mg IVPUSH ONETIME ONE Stop: 06/13/17 10:43 Last Admin: 06/13/17 12:26 Dose: 10 mg Nalbuphine HCl (Nubain) 10 mg IVPUSH Q2H PRN PRN Reason: Pain (moderate 4-6) Ondansetron HCl (Zofran) 4 mg IVPUSH Q4H PRN PRN Reason: Nausea/Vomiting Sodium Chloride (Saline Flush) 10 ml FLUSH ASDIRECTED PRN PRN Reason: Keep Vein Open - Interaction Disposition, : [place] in Room with Family Interaction: Holding Infant Feeding: Bottle Fed Support Person: - Recovery Exam Fundal Tone: Firm Fundal Level: 1 Fingerbreadths Above Umbilicus Fundal Placement: Midline Lochia Amount: Moderate Lochia Color: Rubra/Red Perineum Description: Intact, Minimal Bruising/Swelling Episiotomy/Laceration: None Bladder Status: Voiding Urinary Elimination: Voided - Exam General: alert, oriented, cooperative GI/Abdominal Exam: Soft, Non-Tender Extremities: Normal Inspection Skin: warm, dry, intact - Problem List & Annotations (1) 37 weeks gestation of SNOMED Code(s): 30882876 Code(s): Z3A.37 - 37 WEEKS GESTATION OF Status: Acute Current Visit: Yes (2) Chronic hypertension affecting SNOMED Code(s): 92883144 Code(s): O10.919 - UNSP PRE-EXISTING HTN COMP , UNSP TRIMESTER Status: Acute Current Visit: Yes (3) History of SNOMED Code(s): 296957369 Code(s): Z98.891 - HISTORY OF UTERINE SCAR FROM PREVIOUS SURGERY Status: Acute Current Visit: Yes (4) History of SNOMED Code(s): 486511681, 060215012 Code(s): Z98.891 - HISTORY OF UTERINE SCAR FROM PREVIOUS SURGERY Status: Acute Current Visit: Yes (5) Desires (vaginal after ) trial SNOMED Code(s): 196418289, 846516389 Code(s): O34.219 - MATERNAL CARE FOR UNSP TYPE SCAR FROM PREVIOUS DEL Status: Acute Current Visit: Yes (6) , delivered, current hospitalization SNOMED Code(s): 518869639 Code(s): O34.219 - MATERNAL CARE FOR UNSP TYPE SCAR FROM PREVIOUS DEL Status: Acute Current Visit: Yes - Problem List Review Problem List Initiated/Reviewed/Updated: Yes - My Orders Last 24 Hours: My Active Orders 06/13/17 10:42 Procedure Site Prep Instruct [RC] ASDIRECTED Verify Patient Consent Obtain [RC] PER UNIT ROUTINE 06/13/17 17:37 Activity as Tolerated [RC] PER UNIT ROUTINE Vital Signs [RC] ASDIRECTED Acetaminophen/HYDROcodone [[place] 325-5 MG] 1 tab PO Q6H PRN Benzocaine/Menthol [Dermoplast Pain Relief [place]] See Dose Instructions TOP ASDIRECTED PRN Docusate Sodium [Colace] 100 mg PO BID PRN Ibuprofen [Motrin] 600 mg PO Q6H PRN Witch Val [Tucks] 1 pad TOP ASDIRECTED PRN Assess Lochia [WOMSER] Per Unit Routine Assess Uterine Involution [WOMSER] Per Unit Routine Breast Pump [WOMSER] Per Unit Routine Heat Therapy [OM.PC] PRN Ice Therapy [OM.PC] Per Unit Routine Perineal Care [OM.PC] Per Unit Routine Peripheral IV Discontinue [OM.PC] Routine Sitz Bath [OM.PC] Per Unit Routine 06/13/17 Dinner Regular Diet [DIET] 06/14/17 17:37 Heat Therapy [OM.PC] PRN - Assessment Assessment:: 32 y/o G4 now P3103 PPD#1 from at 37 1/7 wks - Plan Plan:: CHTN * Patient did require a dose of labetalol last night, 100 mg at 2330. Will plan on BID dosing for now. Continue to monitor * Will need a BP check in a week Chronic Narcotic Use * Continue home [place]. Will have patient follow up with Pain Clinic after delivery. Will manage her narcotic Rx until can get back into pain clinic S/p * Routine cares * Bottle feeding * Discharge home tomorrow Karey Ribera MD
--- NOTE | 2017-06-14 09:10 | PCM48HPAN ---
Post Anesthesia Note - EVALUATION WITHIN 48HRS OF ANESTHETIC Vital Signs in Normal Range: Yes Patient Participated in Evaluation: Yes Respiratory Function Stable: Yes Airway Patent: Yes Cardiovascular Function Stable: Yes Hydration Status Stable: Yes Pain Control Satisfactory: Yes Nausea and Vomiting Control Satisfactory: Yes Mental Status Recovered: Yes - COMMENTS/OBSERVATIONS Free Text/Narrative:: Patient denies any headaches, residual numbness or tingling in her LE, or back pain.
[2017-06-14] MEDS: Labetalol 100 MG Tab PO SCH ×2 (10:53→20:42)
[2017-06-15] MEDS: Acetaminophen/HYDROcodone 325-5 MG Tab PO PRN ×2 (07:09→13:54)
--- NOTE | 2017-06-15 08:14 | PCM.DCSUM1 ---
Discharge Summary - Discharge Data Discharge Date: 06/15/17 Discharge Disposition: Home, Self-Care 01 Condition: Good - Patient Summary/Data Operative Procedure(s) Performed: Hospital Course: 32 y/o G4 now P3103 PPD#2 from at 37 1/7 wks CHTN * Patient did require a dose of labetalol. Will plan on BID dosing for now. Continue to monitor * Will need a BP check this coming week Chronic Narcotic Use * Continue home [place]. Will have patient follow up with Pain Clinic after delivery. Dr. Ribera manage her narcotic Rx until can get back into pain clinic S/p * Routine cares * Bottle feeding * Discharge home tomorrow - Patient Instructions Diet: Usual Diet as Tolerated, Low Sodium Activity: No Strenuous Activities Driving: Do Not Drive Notify Provider of: Fever, Increased Pain, Swelling and Redness, Drainage, Nausea and/or Vomiting - Discharge Plan Home Medications: Home Meds Hydrocodone/Acetaminophen [Hydrocodon-Acetaminoph 7.5-325] 1 tab PO Q6H PRN [History] Referrals: Karey Ribera MD [Physician] - (Saturday) - Discharge Summary/Plan Comment DC Time >30 min.: No - General Info Date of Service: 06/15/17 Functional Status: Reports: Pain Controlled - Review of Systems General: Reports: No Symptoms HEENT: Reports: No Symptoms Pulmonary: Reports: No Symptoms Cardiovascular: Reports: No Symptoms Gastrointestinal: Reports: No Symptoms Genitourinary: Reports: No Symptoms Musculoskeletal: Reports: No Symptoms Skin: Reports: No Symptoms Neurological: Reports: No Symptoms Psychiatric: Reports: No Symptoms - Patient Data Vitals - Most Recent: Last Vital Signs Temp 36.8 C 06/15/17 00:31 Pulse 66 06/15/17 00:08 Resp 16 06/15/17 00:31 BP 129/70 06/15/17 00:31 Pulse Ox 97 06/15/17 00:08 Weight - Most Recent: 49.895 kg I&O - Last 24 hours: Intake & Output 06/14/17 06/15/17 06/15/17 22:59 06:59 14:59 Intake Total 300 Balance 300 Med Orders - Current: Current Medications Hydrocodone Bitart/Acetaminophen ([place] 325-5 Mg) 1 tab PO Q6H PRN PRN Reason: Pain (moderate 4-6) Last Admin: 06/15/17 07:09 Dose: 1 tab Benzocaine/Menthol (Dermoplast Pain Relief [place]) 0 gm TOP ASDIRECTED PRN PRN Reason: Perineal Comfort Measure Docusate Sodium (Colace) 100 mg PO BID PRN PRN Reason: Constipation Ibuprofen (Motrin) 600 mg PO Q6H PRN PRN Reason: Mild pain or fever Labetalol HCl (Normodyne) 100 mg PO BID [facility] Last Admin: 06/14/17 20:42 Dose: 100 mg Witch Val (Tucks) 1 pad TOP ASDIRECTED PRN PRN Reason: Hemorrhoid pain Discontinued Medications Hydrocodone Bitart/Acetaminophen ([place] 325-5 Mg) 1 tab PO ONETIME ONE Stop: 06/12/17 19:34 Last Admin: 06/12/17 19:43 Dose: 1 tab Hydrocodone Bitart/Acetaminophen ([place] 325-5 Mg) 1 tab PO ONETIME ONE Stop: 06/13/17 07:03 Last Admin: 06/13/17 07:25 Dose: 1 tab Hydrocodone Bitart/Acetaminophen ([place] 325-5 Mg) 1 tab PO ONETIME ONE Stop: 06/13/17 12:15 Last Admin: 06/13/17 12:26 Dose: 1 tab Citric Acid/Sodium Citrate (Bicitra Solution) 30 ml PO ONETIME ONE Stop: 06/13/17 10:43 Last Admin: 06/14/17 07:23 Dose: Not Given Diphenhydramine HCl (Benadryl) 25 mg IVPUSH Q6H PRN PRN Reason: Itching Ephedrine Sulfate (Ephedrine Sulfate) 5 mg IVPUSH ASDIRECTED PRN PRN Reason: HYPOTENTSION Fentanyl (Sublimaze) 100 mcg EPIDUR Q3H PRN PRN Reason: PAIN Last Admin: 06/13/17 08:52 Dose: 100 mcg Fentanyl/Bupivacaine HCl (Fentanyl/Bupivacaine/Ns 2 Mcg-0.125% 100 Ml) 100 ml EPIDUR ASDIRECTED TERRY Last Admin: 06/13/17 08:53 Dose: 100 ml Oxytocin/Lactated Ringer's (Pitocin In Lr 10 Units/1,000 Ml) 10 unit in 1,000 mls @ 500 mls/hr IV .CONTINUOUS TERRY PRN Reason: Protocol Oxytocin/Lactated Ringer's (Pitocin In Lr 10 Units/1,000 Ml) 10 unit in 1,000 mls @ 12 mls/hr IV TITRATE TERRY; 2 MUNITS/MIN PRN Reason: Protocol Last Titration: 06/13/17 08:00 Dose: 10 munits/min, 60 mls/hr Lactated Ringer's (Ringers, Lactated) 1,000 mls @ 100 mls/hr IV ASDIRECTED TERRY Last Admin: 06/13/17 06:46 Dose: 100 mls/hr Sodium Chloride (Normal Saline) Confirm Administered Dose 1,000 mls @ as directed .ROUTE .STK-MED ONE Stop: 06/13/17 10:12 Last Admin: 06/13/17 10:30 Dose: 125 ml Cefazolin Sodium/Dextrose 2 gm (/ Premix) 50 mls @ 100 mls/hr IV ONETIME ONE Stop: 06/13/17 11:11 Last Admin: 06/14/17 07:24 Dose: Not Given Labetalol HCl (Normodyne) 400 mg PO ONETIME ONE Stop: 06/12/17 11:21 Last Admin: 06/12/17 11:33 Dose: 400 mg Labetalol HCl (Normodyne) 100 mg PO ONETIME ONE Stop: 06/13/17 22:21 Last Admin: 06/13/17 22:30 Dose: 100 mg Metoclopramide HCl (Reglan) 10 mg IVPUSH ONETIME ONE Stop: 06/13/17 10:43 Last Admin: 06/13/17 12:26 Dose: 10 mg Nalbuphine HCl (Nubain) 10 mg IVPUSH Q2H PRN PRN Reason: Pain (moderate 4-6) Ondansetron HCl (Zofran) 4 mg IVPUSH Q4H PRN PRN Reason: Nausea/Vomiting Sodium Chloride (Saline Flush) 10 ml FLUSH ASDIRECTED PRN PRN Reason: Keep Vein Open - Exam General: Reports: alert, oriented HEENT: Reports: Pupils equal, Pupils reactive, EOMI, Mucous membr. moist/pink Neck: Reports: supple Lungs: Reports: Clear to Auscultation, Normal Respiratory Effort Cardiovascular: Reports: Regular Rate, Regular Rhythm GI/Abdominal Exam: Normal Bowel Sounds, Soft, Non-Tender, No Organomegaly, No Distention, No Abnormal Bruit, No Mass, Pelvis Stable (Female) Exam: Normal External Exam, Normal Speculum Exam, Normal Bimanual Exam Back Exam: Reports: Normal Inspection, Full Range of Motion Extremities: Normal Inspection, Normal Range of Motion, Non-Tender, No Pedal Edema, Normal Capillary Refill Skin: Reports: warm, dry, intact Wound/Incisions: Reports: healing well Neurological: Reports: no new focal deficit Psy/Mental Status: Reports: alert, normal affect, normal mood *Q Meaningful Use (DIS) - VTE *Q VTE Criteria *Q: - Stroke *Q Stroke Criteria *Q: - AMI *Q AMI Criteria *Q:
[2017-06-15] MEDS: Labetalol 100 MG Tab PO SCH (11:55)
[2017-06-15 11:57] VITALS: BP 138/78
[2017-06-15] MEDS ORDERED: Non-Formulary Medication 1 Each (Hydrocodone/Acetaminophen 1 TAB) PO PRN (14:27)
== END 2017-06-15 15:30 | disposition home or self-care (01) | DRG 560 ==
LOC: JD.OBCHECK 10:10 → JD.OB 10:16 → JD.OBCHECK 12:12 → OBSVTOIN 06-13 14:56 → JD.OB 06-13 14:56
PROVIDERS: ADMIT Obstetrics & Gynecology; ATTEND Obstetrics & Gynecology
PROC: 10E0XZZ Delivery of Products of Conception, External Approach (ICD-10-PCS; principal; 2017-06-13)
PROC: 10907ZC Drainage of Amniotic Fluid, Therapeutic from Products of Conception, Via Natural or Artificial Opening (ICD-10-PCS; 2017-06-13)
PROC: 00HU33Z Insertion of Infusion Device into Spinal Canal, Percutaneous Approach (ICD-10-PCS; 2017-06-13)
PROC: 3E0R3CZ (ICD-10-PCS; 2017-06-13)
DX: O10.92 Unspecified pre-existing hypertension complicating childbirth (principal); O99.324 Drug use complicating childbirth; Z98.891 History of uterine scar from previous surgery; F19.90 Other psychoactive substance use, unspecified, uncomplicated; O71.82 Other specified trauma to perineum and vulva; O69.81X0 Labor and delivery complicated by cord around neck, without compression, not applicable or unspecified; Z88.6 Allergy status to analgesic agent; Z88.8 Allergy status to other drugs, medicaments and biological substances; Z79.899 Other long term (current) drug therapy; Z87.891 Personal history of nicotine dependence; Z3A.37 37 weeks gestation of pregnancy; Z37.0 Single live birth
CPT/HCPCS: 36415; 81001; 82565; 84450; 84460; 85027; 86850; 86900; 86901; A9270-GY; J2590; J2765; J3010; J7040; J7120

== ENCOUNTER 2017-09-08 16:11 | Emergency (ER) | payer BC ==
[2017-09-08 16:30] VITALS: BP 160/96
--- NOTE | 2017-09-08 17:05 | EDM.PDOC ---
ED HPI GENERAL MEDICAL PROBLEM - General Chief Complaint: Upper Extremity Injury/Pain Stated Complaint: R ARM PAIN W/SHOOTING BURNING PAIN Time Seen by Provider: 09/08/17 16:38 Source of Information: Reports: Patient History Limitations: Reports: No Limitations - History of Present Illness INITIAL COMMENTS - FREE TEXT/NARRATIVE: Patient is a 32-year-old female who presents to the ED complaining of worsening right arm pain with shooting burning discomfort to her wrist. Patient has a herniated disc at C3/C4. She's seen a pain specialist Ann Sahni a provider at [facility] in [place] for this. She's received 2 shots with a third shot scheduled for this coming . She's been taking hydrocodone/ tylenol within 7.5-325 one tablet every 6 hours for pain. As of recent patient had a child approximately 3 weeks ago. 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 She' s been taking ibuprofen and Tylenol in addition to the hydrocodone with minimal relief. She did speak to her pain specialist this past Saturday and was instructed to come to the ED if discomfort does not improve over the weekend. She will see the patient next to modify her pain medications. Patient has full range of motion of her arm. No swelling noted. Notes chronic numbness and tingling to her thumb and index finger. No recent injury noted. 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: Musculoskeletal History: Reports: Other (See Below) Other Musculoskeletal History: Buldging disc - Past Surgical History Female Surgical History: Reports: Section Social & Family History - Family History Family Medical History: Noncontributory Cardiac: Reports: Hypertension, [place] Endocrine/Metabolic: Reports: Diabetes, type II Oncologic: Reports: Bone, Brain - Tobacco Use Smoking Status *Q: Never Smoker Years of Tobacco use: 15 Packs/Tins Daily: 1 Used Tobacco, but Quit: Yes Month Tobacco Last Used: March Second Hand Smoke Exposure: No - Caffeine Use Caffeine Use: Reports: Energy Drinks Other Caffeine Use: Occasional - Recreational Drug Use Recreational Drug Use: No - Living Situation & Occupation Living situation: Reports: Single, with Significant Other, with Family Occupation: Employed Review of Systems - Review of Systems Review Of Systems: ROS reveals no pertinent complaints other than HPI. ED EXAM, GENERAL - Physical Exam Exam: See Below Exam Limited By: No Limitations General Appearance: Alert, WD/WN, No Apparent Distress Ears: Hearing Grossly Normal Nose: Normal Inspection Throat/Mouth: Normal Voice, No Airway Compromise Neck: Normal Inspection, Supple Respiratory/Chest: No Respiratory Distress, Lungs Clear, Normal Breath Sounds, No Accessory Muscle Use Cardiovascular: Normal Peripheral Pulses, Regular Rate, Rhythm Peripheral Pulses: 2+: Radial (R) Extremities: Normal Inspection, Normal Range of Motion, No Pedal Edema, Normal Capillary Refill, Other (Tenderness noted to the right upper and lower arm with gentle touch. Minimal discomfort with movement. No swelling, ecchymosis, or bony abnormalities noted. Full range of motion.) Neurological: Alert, Oriented, CN II-XII Intact, Normal Cognition, No Motor/ Sensory Deficits Psychiatric: Normal Affect, Normal Mood Skin Exam: Warm, Dry, Intact Course - Vital Signs Last Recorded V/S: Last Vital Signs Temp 98.8 F 09/08/17 16:29 Pulse 92 09/08/17 16:29 Resp 16 09/08/17 16:29 BP 160/96 H 09/08/17 16:29 Pulse Ox 99 09/08/17 16:29 - Re-Assessments/Exams Free Text/Narrative Re-Assessment/Exam: Patient has been taking norco 7.5/325mg mg PO 1 tab every 6 hours for pain. This is not working per patient. Has been in contact with pain specialists this past Saturday with instructions to come to the E.D. She has not tried doubling up on the [place] since she will run out of this medication by . I will discharge the patient home with additional prescription to allow her to take one to 2 tabs of [place] 7.5-325 every 6 hours for pain as needed. Patient has no known liver disease. Patient will not receive any medications while in the ED. She does not have a paratransit driver. Discharge instructions as documented. Departure - Departure Time of Disposition: 17:05 Disposition: Home, Self-Care 01 Condition: Good Clinical Impression: Bulging of cervical intervertebral disc, Right arm pain, Chronic pain of right upper extremity - Discharge Information Prescriptions: Acetaminophen/HYDROcodone [[place] 325-7.5 MG] 1 tab PO Q6H PRN #16 tablet PRN Reason: Pain (Severe 7-10) Instructions: Chronic Pain Referrals: Faith Barlow PA-C [Primary Care Provider] - Forms: ED Department Discharge, ED Return to Work/School Form Additional Instructions: As discussed Provided additional prescription for hydrocodone/acetaminophen 7.5 mg/325. You are to take one to 2 tabs every 6 hours as needed for pain. Refrain from any activities that cause worsening discomfort. Utilize ice to the base of the neck/arm as needed. Follow-up with pain specialist as scheduled for this coming . No driving while taking the hydrocodone. Return to the ED for any new or worsening symptoms.
== END 2017-09-08 17:44 | disposition home or self-care (01) ==
LOC: JD.ED 16:11
DX: M50.81 Other cervical disc disorders, high cervical region (principal); Z88.5 Allergy status to narcotic agent; Z88.8 Allergy status to other drugs, medicaments and biological substances; Z79.899 Other long term (current) drug therapy; Z87.891 Personal history of nicotine dependence
CPT/HCPCS: 99283

== ENCOUNTER 2018-01-07 19:57 | Emergency (ER) | payer BC ==
[2018-01-07 20:10] VITALS: BP 198/116
[2018-01-07] MEDS ORDERED: Sodium Chloride 0.9% 10 ML Syringe FLUSH PRN (20:28)
[2018-01-07] MEDS ORDERED: diphenhydrAMINE 50 MG/ML SDV IVPUSH ONE (20:29)
[2018-01-07] MEDS ORDERED: Prochlorperazine 10 MG/2 ML SDV IVPUSH ONE (20:29)
[2018-01-07] MEDS ORDERED: Sodium Chloride 0.9% 1,000 ML IV SCH (20:30)
[2018-01-07] MEDS ORDERED: Ketorolac 30 MG/ML SDV IVPUSH ONE (21:17)
--- NOTE | 2018-01-07 21:54 | EDM.PDOC ---
ED HPI GENERAL MEDICAL PROBLEM - General Chief Complaint: Headache Stated Complaint: HIGH BLOOD PRESSURE HEADACHE Time Seen by Provider: 01/07/18 20:08 Source of Information: Reports: Patient History Limitations: Reports: No Limitations - History of Present Illness INITIAL COMMENTS - FREE TEXT/NARRATIVE: The patient developed chills over the past few days. She does not feel like she has a fever. She then had a headache that got much worse today. Now she has a sever headache to the left side with nausea and vomiting. She has no numbness or weakness. She has no chest pain or shortness of breath. She has no abdominal pain. She has high blood pressure now. She went to the walk in clinic and they sent her here. She said after her last child she had high blood pressure and she needed to be on lisinopril for a few months and then it got better. Onset: Gradual Duration: Day(s): Location: Reports: Head Quality: Reports: Sharp Severity: Severe Improves with: Reports: None Worsens with: Reports: None Associated Symptoms: Reports: Headaches, Nausea/Vomiting. 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: Musculoskeletal History: Reports: Other (See Below) Other Musculoskeletal History: Buldging disc - Past Surgical History Female Surgical History: Reports: Section Social & Family History - Family History Family Medical History: Noncontributory Cardiac: Reports: Hypertension, [place] Endocrine/Metabolic: Reports: Diabetes, type II Oncologic: Reports: Bone, Brain - Tobacco Use Smoking Status *Q: Current Every Day Smoker Years of Tobacco use: 10 Packs/Tins Daily: 0.5 Used Tobacco, but Quit: Yes Month Tobacco Last Used: March Second Hand Smoke Exposure: No - Caffeine Use Caffeine Use: Reports: Energy Drinks Other Caffeine Use: Occasional - Recreational Drug Use Recreational Drug Use: No - Living Situation & Occupation Living situation: Reports: Single, with Significant Other, with Family Occupation: Employed ED ROS GENERAL - Review of Systems Review Of Systems: See Below Constitutional: Reports: Chills. Denies: Fever HEENT: Reports: No Symptoms Respiratory: Reports: No Symptoms Cardiovascular: Reports: No Symptoms Endocrine: Reports: No Symptoms GI/Abdominal: Reports: Nausea, Vomiting. Denies: Abdominal Pain : Reports: No Symptoms Musculoskeletal: Reports: No Symptoms - Physical Exam Exam: See Below Exam Limited By: No Limitations General Appearance: Alert, No Apparent Distress Ears: Normal External Exam Nose: Normal Inspection Head Exam: Atraumatic, Normocephalic Neck: Normal Inspection Respiratory/Chest: No Respiratory Distress, Lungs Clear, Normal Breath Sounds Cardiovascular: Regular Rate, Rhythm, No Edema, No Murmur GI/Abdominal: Soft, Non-Tender, No Organomegaly, No Mass Neuro Exam (Abbreviated): Alert, Oriented, No Motor/Sensory Deficits Course - Vital Signs Last Recorded V/S: Last Vital Signs Temp 97.8 F 01/07/18 20:07 Pulse 92 01/07/18 20:07 Resp 16 01/07/18 20:07 BP 198/116 H 01/07/18 20:07 Pulse Ox 97 01/07/18 20:07 - Orders/Labs/Meds Orders: Active Orders 24 hr Category Date Time Status Cardiac Monitoring [RC] . DIRECTED Care 01/07/18 20:28 Active Peripheral IV Care [RC] . DIRECTED Care 01/07/18 20:29 Active Head wo Cont [CT] Stat Exams 01/07/18 20:29 Taken Sodium Chloride 0.9% [Normal Saline] 1,000 ml Med 01/07/18 20:30 Active IV .BOLUS Sodium Chloride 0.9% [Saline Flush] Med 01/07/18 20:28 Active 10 ml FLUSH ASDIRECTED PRN ED Antiemetic Medication Reflex [OM.PC] Stat Oth 01/07/18 20:29 Ordered Peripheral IV Insertion Adult [OM.PC] Stat Oth 01/07/18 20:28 Ordered Medication Orders Sodium Chloride (Normal Saline) 1,000 mls @ 1,000 mls/hr IV .BOLUS TERRY Last Admin: 01/07/18 20:42 Dose: 1,000 mls/hr Sodium Chloride (Saline Flush) 10 ml FLUSH ASDIRECTED PRN PRN Reason: Keep Vein Open Last Admin: 01/07/18 20:43 Dose: 10 ml Meds: Medications Generic Name Dose Route Start Last Admin Trade Name Freq PRN Reason Stop Dose Admin Sodium Chloride 1,000 mls @ 1,000 mls/hr 01/07/18 20:30 01/07/18 20:42 Normal Saline IV 1,000 mls/hr .BOLUS TERRY Administration Sodium Chloride 10 ml 01/07/18 20:28 01/07/18 20:43 Saline Flush FLUSH 10 ml ASDIRECTED PRN Administration Keep Vein Open Discontinued Medications Generic Name Dose Route Start Last Admin Trade Name Freq PRN Reason Stop Dose Admin Diphenhydramine HCl 50 mg 01/07/18 20:29 01/07/18 20:43 Benadryl IVPUSH 01/07/18 20:30 50 mg ONETIME ONE Administration Ketorolac Tromethamine 30 mg 01/07/18 21:17 01/07/18 21:54 Toradol IVPUSH 01/07/18 21:18 30 mg ONETIME ONE Administration Prochlorperazine Edisylate 10 mg 01/07/18 20:29 01/07/18 20:44 Compazine IVPUSH 01/07/18 20:30 10 mg ONETIME ONE Administration - Re-Assessments/Exams Free Text/Narrative Re-Assessment/Exam: 01/07/18 21:53 I ordered an IV NS bolus, compazine 10mg IV, benadryl 50mg IV, and CT of her head. 01/07/18 22:[address] shows nothing acute. She still had the headache so I ordered toradol. She is much better and she was able to sleep. I will discharge her home. Departure - Departure Time of Disposition: 22:55 Disposition: Home, Self-Care 01 Condition: Good Clinical Impression: Headache Qualifiers: Headache type: unspecified Headache chronicity pattern: acute headache Intractability: not intractable Qualified Code(s): R51 - Headache - Discharge Information Referrals: Faith Barlow PA-C [Primary Care Provider] - Forms: ED Department Discharge, ED Return to Work/School Form Additional Instructions: Go home and get some rest in a dark quiet room. Your blood pressure was elevated in the ER today. Have that rechecked in 1 week when you do not have symptoms. - My Orders Last 24 Hours: My Active Orders 01/07/18 20:28 Cardiac Monitoring [RC] . DIRECTED Sodium Chloride 0.9% [Saline Flush] 10 ml FLUSH ASDIRECTED PRN Peripheral IV Insertion Adult [OM.PC] Stat 01/07/18 20:29 Peripheral IV Care [RC] . DIRECTED Head wo Cont [CT] Stat ED Antiemetic Medication Reflex [OM.PC] Stat 01/07/18 20:30 Sodium Chloride 0.9% [Normal Saline] 1,000 ml IV .BOLUS - Assessment/Plan Last 24 Hours: My Active Orders 01/07/18 20:28 Cardiac Monitoring [RC] . DIRECTED Sodium Chloride 0.9% [Saline Flush] 10 ml FLUSH ASDIRECTED PRN Peripheral IV Insertion Adult [OM.PC] Stat 01/07/18 20:29 Peripheral IV Care [RC] . DIRECTED Head wo Cont [CT] Stat ED Antiemetic Medication Reflex [OM.PC] Stat 01/07/18 20:30 Sodium Chloride 0.9% [Normal Saline] 1,000 ml IV .BOLUS
--- NOTE | 2018-01-08 07:25 | CT ---
Head CT Technique: Multiple axial sections through the brain were obtained. Intravenous contrast was not utilized. Comparison: No previous intracranial imaging. Findings: Ventricles along with basal cisterns and sulci over the convexities are within normal limits for the patient's age. No abnormal parenchymal densities are seen. No evidence of intracranial hemorrhage. No midline shift or mass effect is seen. Bone window settings were reviewed which show no acute calvarial abnormality. Visualized sinuses are clear. Impression: 1. Nothing acute is seen on noncontrast head CT exam. Diagnostic code #1 Agree with preliminary report issued by [email or web address] ([facility] preliminary report dictated on 01/07/18, 10:12 PM Central Time)
== END 2018-01-07 23:10 | disposition home or self-care (01) ==
LOC: JD.ED 19:57
DX: R51 Headache (principal); F17.210 Nicotine dependence, cigarettes, uncomplicated; Z88.5 Allergy status to narcotic agent; Z88.8 Allergy status to other drugs, medicaments and biological substances; Z79.899 Other long term (current) drug therapy
CPT/HCPCS: 70450; 87804; 96361; 96374; 96375; 99284; J0780; J1200; J1885; J7040; J7050

== ENCOUNTER 2018-12-17 04:54 | Emergency (ER) | payer BC, OTHER ==
[2018-12-17 05:05] VITALS: BP 175/112
[2018-12-17] MEDS ORDERED: Acetaminophen/HYDROcodone 325-5 MG Tab PO ONE (05:29)
[2018-12-17] MEDS ORDERED: Amoxicillin 500 MG Cap PO ONE (05:29)
--- NOTE | 2018-12-17 05:36 | EDM.PDOC ---
ED HPI GENERAL MEDICAL PROBLEM - General Chief Complaint: ENT Problem Stated Complaint: TOOTH/EAR PAIN Time Seen by Provider: 12/17/18 05:23 Source of Information: Reports: Patient, RN Notes Reviewed - History of Present Illness INITIAL COMMENTS - FREE TEXT/NARRATIVE: 33-year-old lady comes in with dental pain. States of filling came out of her left upper incisor 3 days ago. He has had worsening pain since this occurred, especially over the last 12-24 hours. No fever or chills. She felt like there was a pus pocket developing that she popped on her own last evening. 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: ovarian cysts Musculoskeletal History: Reports: Other (See Below) Other Musculoskeletal History: Buldging disc - Past Surgical History Female Surgical History: Reports: Section, Tubal Ligation Other Neurological Surgeries/Procedures: numbness/tingling to fingertips Social & Family History - Family History Family Medical History: Noncontributory Cardiac: Reports: Hypertension, [place] Endocrine/Metabolic: Reports: Diabetes, type II Oncologic: Reports: Bone, Brain - Tobacco Use Smoking Status *Q: Current Some Day Smoker Years of Tobacco use: 10 Packs/Tins Daily: 0.2 - Caffeine Use Caffeine Use: Reports: None Other Caffeine Use: Occasional - Recreational Drug Use Recreational Drug Use: No - Living Situation & Occupation Living situation: Reports: Single, with Significant Other, with Family Occupation: Employed ED ROS ENT - Review of Systems Review Of Systems: See Below Constitutional: Denies: Fever, Chills HEENT: Reports: Dental Pain Respiratory: Reports: No Symptoms Cardiovascular: Reports: No Symptoms GI/Abdominal: Denies: Nausea, Vomiting Musculoskeletal: Reports: No Symptoms Skin: Denies: Rash Neurological: Reports: No Symptoms ED EXAM, ENT - Physical Exam Exam: See Below General Appearance: Alert, Moderate Distress Eye Exam: Bilateral Eye: PERRL Mouth/Throat: Dental Pain (Cavitation present left upper incisor, tender, no visible gum swelling at this time, no visible drainage) Head: Facial Tenderness (L maxilla). No: Facial Swelling Respiratory/Chest: No Respiratory Distress Course - Vital Signs Last Recorded V/S: Last Vital Signs Temp 98.1 F 12/17/18 05:00 Pulse 125 H 12/17/18 05:00 Resp 18 12/17/18 05:00 BP 175/112 H 12/17/18 05:00 Pulse Ox 95 12/17/18 05:00 - Orders/Labs/Meds Meds: Medications Discontinued Medications Generic Name Dose Route Start Last Admin Trade Name Freq PRN Reason Stop Dose Admin Hydrocodone Bitart/Acetaminophen 1 tab 12/17/18 05:29 12/17/18 05:34 [place] 325-5 Mg PO 12/17/18 05:30 1 tab ONETIME ONE Administration Amoxicillin 1,000 mg 12/17/18 05:29 12/17/18 05:34 Amoxil PO 12/17/18 05:30 1,000 mg ONETIME ONE Administration Departure - Departure Time of Disposition: 05:31 Disposition: Home, Self-Care 01 Condition: Fair Clinical Impression: Pain, dental - Discharge Information Prescriptions: Acetaminophen/HYDROcodone [[place] 325-5 MG] 1 tab PO Q6H PRN #10 tablet PRN Reason: Pain Instructions: Dental Abscess Referrals: Faith Barlow PA-C [Primary Care Provider] - Forms: ED Department Discharge Additional Instructions: Amoxicillin 1000 mg twice daily for 1 week or until gone, Advil 600 mg 2-3 times daily or Aleve 2 tablets twice daily for pain and inflammation, your may take Tylenol in addition 2 to 3 times daily for extra pain relief or hydrocodone if needed for severe pain. Do not take Tylenol and hydrocodone at the same time. Do not drive or work when taking hydrocodone. See dentist as soon as possible.
== END 2018-12-17 05:42 | disposition home or self-care (01) ==
LOC: JD.ED 04:54
DX: K08.89 Other specified disorders of teeth and supporting structures (principal); I10 Essential (primary) hypertension; F17.210 Nicotine dependence, cigarettes, uncomplicated; Z98.51 Tubal ligation status; Z88.5 Allergy status to narcotic agent; Z88.8 Allergy status to other drugs, medicaments and biological substances
CPT/HCPCS: 99282; A9270

== ENCOUNTER 2019-01-05 07:20 | Emergency (ER) | payer SELFPAY ==
[2019-01-05 07:41] VITALS: BP 180/120
[2019-01-05] MEDS ORDERED: Sodium Chloride 0.9% 1,000 ML IV STA (07:49)
[2019-01-05] MEDS ORDERED: Sodium Chloride 0.9% 10 ML Syringe FLUSH PRN (07:49)
[2019-01-05] MEDS ORDERED: Ondansetron 4 MG/2 ML SDV IVPUSH ONE ×2 (07:49→10:38)
[2019-01-05] MEDS ORDERED: HYDROmorphone 1 MG/ML Syringe IVPUSH ONE ×2 (07:50→09:20)
--- NOTE | 2019-01-05 08:40 | EDM.PDOC ---
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 This all started on Saturday. That would be her normal period time but she is bleeding way more then usual and even passing some clots at times. She also has severe cramping. She has a history of ovarian cysts before. She also had a tubal ligation years ago. She has some chills but no fever. She has no dysuria. Onset: Gradual Duration: Day(s): (3) Location: Reports: Abdomen Quality: Reports: Sharp (cramping) Severity: Severe Improves with: Reports: None Worsens with: Reports: None Associated Symptoms: Reports: Fever/Chills. 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: , Other (See Below) 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 SUBASSEMBLER History: ovarian cysts Musculoskeletal History: Reports: Other (See Below) Other Musculoskeletal History: Buldging disc - Past Surgical History Female Surgical History: Reports: Section, Tubal Ligation Neurological Surgical History: Reports: Other (See Below) Other Neurological Surgeries/Procedures: numbness/tingling to fingertips Social & Family History - Family History Family Medical History: Noncontributory Cardiac: Reports: Hypertension, [place] Endocrine/Metabolic: Reports: Diabetes, type II Oncologic: Reports: Bone, Brain - Tobacco Use Smoking Status *Q: Current Some Day Smoker Years of Tobacco use: 10 Packs/Tins Daily: 0.2 - Caffeine Use Caffeine Use: Reports: None Other Caffeine Use: Occasional - Recreational Drug Use Recreational Drug Use: No - Living Situation & Occupation Living situation: Reports: Single, with Significant Other, with Family Occupation: Employed ED ROS GENERAL - Review of Systems Review Of Systems: See Below Constitutional: Reports: Chills. Denies: Fever HEENT: Reports: No Symptoms Respiratory: Reports: No Symptoms Cardiovascular: Reports: No Symptoms Endocrine: Reports: No Symptoms GI/Abdominal: Reports: Abdominal Pain. Denies: Diarrhea, Nausea, Vomiting : Reports: Irregular Menses (Heavy and painful) Musculoskeletal: Reports: No Symptoms Skin: Reports: No Symptoms ED EXAM, RENAL/ - Physical Exam Exam: See Below Exam Limited By: No Limitations General Appearance: Alert, No Apparent Distress Ears: Normal External Exam Nose: Normal Inspection Head: Atraumatic, Normocephalic Neck: Normal Inspection Respiratory/Chest: No Respiratory Distress, Lungs Clear, Normal Breath Sounds Cardiovascular: Regular Rate, Rhythm, No Edema, No Murmur GI/Abdominal: Soft, No Organomegaly, Tender (Moderate tenderness to the lower abdomen) (Female) Exam: Normal External Exam, Vaginal Bleeding (Mild to moderate) Course - Vital Signs Last Recorded V/S: Last Vital Signs Temp 98.2 F 01/05/19 07:30 Pulse 109 H 01/05/19 07:30 Resp 19 01/05/19 07:30 BP 180/120 H 01/05/19 07:30 Pulse Ox 99 01/05/19 07:30 - Orders/Labs/Meds Orders: Active Orders 24 hr Category Date Time Status Pelvic Exam, Set Up [RC] ASDIRECTED Care 01/05/19 07:50 Active Peripheral IV Care [RC] . DIRECTED Care 01/05/19 07:49 Active Sodium Chloride 0.9% [Saline Flush] Med 01/05/19 07:49 Active 10 ml FLUSH ASDIRECTED PRN ED Antiemetic Medication Reflex [OM.PC] Stat Oth 01/05/19 07:50 Ordered Peripheral IV Insertion Adult [OM.PC] Stat Oth 01/05/19 07:49 Ordered Medication Orders Sodium Chloride (Saline Flush) 10 ml FLUSH ASDIRECTED PRN PRN Reason: Keep Vein Open Last Admin: 01/05/19 07:57 Dose: 10 ml Labs: Laboratory Tests 01/05/19 01/05/19 01/05/19 Range/Units 07:38 07:38 07:38 WBC 10.66 H (3.98-10.04) K/mm3 RBC 4.84 (3.98-5.22) M/mm3 Hgb 15.5 (11.2-15.7) gm/L Hct 44.1 (34.1-44.9) % MCV 91.1 (79.4-94.8) fl MCH 32.0 (25.6-32.2) pg MCHC 35.1 (32.2-35.5) g/dl RDW Std Deviation 41.4 (36.4-46.3) fL Plt Count 355 (182-369) K/mm3 MPV 9.0 L (9.4-12.3) fl Neut % (Auto) 62.6 (34.0-71.1) % Lymph % (Auto) 29.2 (19.3-51.7) % Gilchrist % (Auto) 7.2 (4.7-12.5) % Eos % (Auto) 0.3 L (0.7-5.8) Baso % (Auto) 0.5 (0.1-1.2) % Neut # (Auto) 6.68 H (1.56-6.13) K/mm3 Lymph # (Auto) 3.11 (1.18-3.74) K/mm3 Gilchrist # (Auto) 0.77 H (0.24-0.36) K/mm3 Eos # (Auto) 0.03 L (0.04-0.36) K/mm3 Baso # (Auto) 0.05 (0.01-0.08) K/mm3 Sodium 136 (136-145) mEq/L Potassium 2.9 L (3.5-5.1) mEq/L Chloride 97 L (98-107) mEq/L Carbon Dioxide 26 (21-32) mEq/L Anion Gap 15.9 H (5-15) BUN 10 (7-18) mg/dL Creatinine 0.6 (0.55-1.02) mg/dL Est Cr Clr Drug Dosing 112.45 mL/min Estimated GFR (MDRD) > 60 (>60) mL/min BUN/Creatinine Ratio 16.7 (14-18) Glucose 95 (74-106) mg/dL Calcium 8.7 (8.5-10.1) mg/dL Total Bilirubin 0.6 (0.2-1.0) mg/dL AST 21 (15-37) U/L ALT 27 (14-59) U/L Alkaline Phosphatase 74 (46-116) U/L Total Protein 8.1 (6.4-8.2) g/dl Albumin 4.1 (3.4-5.0) g/dl Globulin 4.0 gm/dL Albumin/Globulin Ratio 1.0 (1-2) HCG, Qual Negative (NEGATIVE) Meds: Medications Generic Name Dose Route Start Last Admin Trade Name Freq PRN Reason Stop Dose Admin Sodium Chloride 10 ml 01/05/19 07:49 01/05/19 07:57 Saline Flush FLUSH 10 ml ASDIRECTED PRN Administration Keep Vein Open Discontinued Medications Generic Name Dose Route Start Last Admin Trade Name Freq PRN Reason Stop Dose Admin Fentanyl 100 mcg 01/05/19 10:17 01/05/19 10:23 Sublimaze IVPUSH 01/05/19 10:18 100 mcg ONETIME ONE Administration Hydromorphone HCl 1 mg 01/05/19 07:50 01/05/19 07:57 Dilaudid IVPUSH 01/05/19 07:51 1 mg ONETIME ONE Administration Hydromorphone HCl 1 mg 01/05/19 09:20 01/05/19 09:35 Dilaudid IVPUSH 01/05/19 09:21 1 mg ONETIME ONE Administration Sodium Chloride 1,000 mls @ 1,000 mls/hr 01/05/19 07:49 01/05/19 07:57 Normal Saline IV 01/05/19 08:48 1,000 mls/hr .BOLUS STA Administration Ondansetron HCl 4 mg 01/05/19 07:49 01/05/19 07:57 Zofran IVPUSH 01/05/19 07:50 4 mg ONETIME ONE Administration Ondansetron HCl 4 mg 01/05/19 10:38 01/05/19 10:42 Zofran IVPUSH 01/05/19 10:39 4 mg ONETIME ONE Administration - Re-Assessments/Exams Free Text/Narrative Re-Assessment/Exam: 01/05/19 08:40 I ordered an IV NS 1L bolus, zofran 4mg IV, dilaudid 1mg IV, labs and a pelvic exam. 01/05/19 11:46 Her WBC was slightly elevated at 10.66. Her K was low at 2.9. Her HCG was negative. I did an US that shows normal endometrial thickness at 7mm. Possible small subendometrial fibroid measuring 5mm as well as possible subserosal fibroid measuring 4mm. Small hyperechoic finding measuring 2mm within the subendometrial location posteriorly within the uterus believed to be incidental likely due to minimal calcification. Poorly seen left ovary. Incidental nabothian cysts. The patient had more pain and nausea. I ordered some fentanyl and zofran. I called Dr Ribera and at this time she did not need anything for the bleeding. I will give her something for the pain. Departure - Departure Time of Disposition: 11:50 Disposition: Home, Self-Care 01 Condition: Good Clinical Impression: Vaginal bleeding, abnormal, Uterine cramping - Discharge Information *PRESCRIPTION DRUG MONITORING PROGRAM REVIEWED*: No *COPY OF PRESCRIPTION DRUG MONITORING REPORT IN PATIENT KANWAL: No Prescriptions: Hydrocodone/Acetaminophen [Hydrocodon-Acetaminophen 5-325] 1 - 2 each PO Q6HR PRN #20 tablet PRN Reason: Pain Referrals: Karey Ribera MD [Primary Care Provider] - 1 Week Forms: ED Department Discharge Additional Instructions: Take motrin or aleve for pain. If that does not help, try the hydrocodone. Follow up with Dr Ribera within 1 week. Please return if you are worse such as more pain or if you are soaking more then 1 pad per hour. - My Orders Last 24 Hours: My Active Orders 01/05/19 07:49 Peripheral IV Care [RC] . DIRECTED Sodium Chloride 0.9% [Saline Flush] 10 ml FLUSH ASDIRECTED PRN Peripheral IV Insertion Adult [OM.PC] Stat 01/05/19 07:50 Pelvic Exam, Set Up [RC] ASDIRECTED ED Antiemetic Medication Reflex [OM.PC] Stat - Assessment/Plan Last 24 Hours: My Active Orders 01/05/19 07:49 Peripheral IV Care [RC] . DIRECTED Sodium Chloride 0.9% [Saline Flush] 10 ml FLUSH ASDIRECTED PRN Peripheral IV Insertion Adult [OM.PC] Stat 01/05/19 07:50 Pelvic Exam, Set Up [RC] ASDIRECTED ED Antiemetic Medication Reflex [OM.PC] Stat
[2019-01-05] MEDS ORDERED: fentaNYL 100 MCG/2 ML SDV IVPUSH ONE (10:17)
--- NOTE | 2019-01-05 11:41 | US ---
Pelvic ultrasound: Multiple real-time images were obtained transvaginally. Comparison: No previous pelvic imaging. Uterus is anteverted. Endometrial thickness is normal at 7 mm. Small hyperechoic area, possibly due to small calcification is noted in a subendometrial location posteriorly within the uterus believed to be incidental. Small and slightly echogenic abnormality is noted within the myometrium within the lower uterine segment anteriorly most likely due to minimal fibroid. Slightly hyperechoic area seen in a subendometrial location within the uterine body most likely due to small subendometrial fibroid measuring 5 mm. Ovaries show follicles. Left ovary not optimally seen. Incidental nabothian cyst is noted. Measurements: Uterus: Length 8.7 cm, AP height 4.1 cm, transverse width 5.5 cm Right ovary: 2.7 x 1.6 x 1.4 cm Impression: 1. Endometrial thickness normal at 7 mm. 2. Possible small subendometrial fibroid measuring 5 mm as well as possible subserosal fibroid measuring 4 mm. Small hyperechoic finding measuring 2 mm within the subendometrial location posteriorly within the uterus believed to be incidental likely due to minimal calcification. 3. Poorly seen left ovary. 4. Incidental nabothian cysts. Diagnostic code #3
== END 2019-01-05 12:10 | disposition home or self-care (01) ==
LOC: JD.ED 07:20
DX: N93.9 Abnormal uterine and vaginal bleeding, unspecified (principal); N94.6 Dysmenorrhea, unspecified; I10 Essential (primary) hypertension; F17.210 Nicotine dependence, cigarettes, uncomplicated; Z88.8 Allergy status to other drugs, medicaments and biological substances; Z88.5 Allergy status to narcotic agent
CPT/HCPCS: 36415; 76856; 80053; 84703; 85025; 96361; 96374; 96375; 96376; 99284; J1170; J2405; J3010; J7040

== ENCOUNTER 2019-02-14 08:38 | Emergency (ER) | payer SELFPAY ==
[2019-02-14 08:45] VITALS: BP 156/108
[2019-02-14] MEDS ORDERED: methylPREDNISolone Sodium Succinate 125 MG/2 ML SDV IM ONE (08:58)
[2019-02-14] MEDS ORDERED: Ketorolac 60 MG/2 ML SDV IM ONE (08:58)
--- NOTE | 2019-02-14 09:03 | EDM.PDOC ---
ED HPI GENERAL MEDICAL PROBLEM - General Chief Complaint: ENT Problem Stated Complaint: SORE THROAT Time Seen by Provider: 02/14/19 08:42 Source of Information: Reports: Patient History Limitations: Reports: No Limitations - History of Present Illness INITIAL COMMENTS - FREE TEXT/NARRATIVE: The patient presents with a sore throat and fever. This has been going on since . She has trouble swallowing. She had strep throat as a child but not lately. She has not been around anyone who is sick. She has no cough, congestion or runny nose. She has no abdominal pain, nausea or vomiting. Onset: Gradual Duration: Day(s): (3) Location: Reports: Other (Throat) Quality: Reports: Sharp Severity: Severe Improves with: Reports: None Worsens with: Reports: None Associated Symptoms: Reports: Fever/Chills. 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: Reports: , Other (See Below) Other MOLDER HAND History: ovarian cysts Musculoskeletal History: Reports: Other (See Below) Other Musculoskeletal History: Buldging disc - Past Surgical History Female Surgical History: Reports: Section, Tubal Ligation Neurological Surgical History: Reports: Other (See Below) Other Neurological Surgeries/Procedures: numbness/tingling to fingertips Social & Family History - Family History Family Medical History: Noncontributory Cardiac: Reports: Hypertension, [place] Endocrine/Metabolic: Reports: Diabetes, type II Oncologic: Reports: Bone, Brain - Tobacco Use Smoking Status *Q: Current Every Day Smoker Years of Tobacco use: 10 Packs/Tins Daily: 0.2 - Caffeine Use Caffeine Use: Reports: None Other Caffeine Use: Occasional - Recreational Drug Use Recreational Drug Use: No - Living Situation & Occupation Living situation: Reports: Single, with Significant Other, with Family Occupation: Employed ED ROS ENT - Review of Systems Review Of Systems: See Below Constitutional: Reports: Fever HEENT: Reports: Throat Pain Respiratory: Reports: No Symptoms Cardiovascular: Reports: No Symptoms Endocrine: Reports: No Symptoms GI/Abdominal: Reports: No Symptoms : Reports: No Symptoms Musculoskeletal: Reports: No Symptoms Skin: Reports: No Symptoms Neurological: Reports: No Symptoms ED EXAM, ENT - Physical Exam Exam: See Below Exam Limited By: No Limitations General Appearance: Alert, No Apparent Distress Ears: Normal External Exam Nose: Normal Inspection Mouth/Throat: Tonsillar Erythema, Tonsillar Exudates, Tonsillar Swelling Head: Atraumatic, Normocephalic Neck: Lymphadenopathy (R) Respiratory/Chest: No Respiratory Distress, Lungs Clear, Normal Breath Sounds Cardiovascular: Regular Rate, Rhythm, No Edema, No Murmur GI/Abdominal: Soft, Non-Tender, No Organomegaly, No Mass Back: Normal Inspection Course - Vital Signs Last Recorded V/S: Last Vital Signs Temp 98.9 F 02/14/19 08:42 Pulse 128 H 02/14/19 08:42 Resp 18 02/14/19 08:42 BP 156/108 H 02/14/19 08:42 Pulse Ox 98 02/14/19 08:42 - Orders/Labs/Meds Orders: Active Orders 24 hr Category Date Time Status Penicillin G Benzathine [Bicillin L-A] Med 02/14/19 09:35 Once 1.2 millunits IM ONETIME ONE Meds: Medications Discontinued Medications Generic Name Dose Route Start Last Admin Trade Name Raiza PRN Reason Stop Dose Admin Ketorolac Tromethamine 60 mg 02/14/19 08:58 02/14/19 09:03 Toradol IM 02/14/19 08:59 60 mg ONETIME ONE Administration Methylprednisolone Sodium Succinate 125 mg 02/14/19 08:58 02/14/19 09:04 Solu-Medrol IM 02/14/19 08:59 125 mg ONETIME ONE Administration - Re-Assessments/Exams Free Text/Narrative Re-Assessment/Exam: 02/14/19 09:02 I ordered a rapid strep and solu-medrol 125mg IM and toradol 60mg IM. 02/14/19 09:35 The strep is positive. I will give her a shot of penicillin G. Departure - Departure Time of Disposition: 09:40 Disposition: Home, Self-Care 01 Condition: Good Clinical Impression: Tonsillitis - Discharge Information *PRESCRIPTION DRUG MONITORING PROGRAM REVIEWED*: Not Applicable *COPY OF PRESCRIPTION DRUG MONITORING REPORT IN PATIENT KANWAL: Not Applicable Referrals: Faith Barlow PA-C [Primary Care Provider] - Forms: ED Department Discharge, ED Return to Work/School Form Additional Instructions: I gave your a shot of penicillin in the ER. You do not need to take any oral antibiotics. You should start feeling better in 24 to 48 hours. Take motrin or tylenol for pain or fevers. If you cannot swallow pills try the liquid children's tylenol or motrin. Drink plenty of fluids. Please return if you are worse. - My Orders Last 24 Hours: My Active Orders 02/14/19 09:35 Penicillin G Benzathine [Bicillin L-A] 1.2 millunits IM ONETIME ONE - Assessment/Plan Last 24 Hours: My Active Orders 02/14/19 09:35 Penicillin G Benzathine [Bicillin L-A] 1.2 millunits IM ONETIME ONE
[2019-02-14] MEDS ORDERED: Penicillin G Benzathine 1,200,000 Units/2 ML Syringe IM ONE (09:35)
== END 2019-02-14 10:00 | disposition home or self-care (01) ==
LOC: JD.ED 08:38
DX: J03.90 Acute tonsillitis, unspecified (principal); F17.210 Nicotine dependence, cigarettes, uncomplicated; I10 Essential (primary) hypertension; Z88.5 Allergy status to narcotic agent; Z88.8 Allergy status to other drugs, medicaments and biological substances
CPT/HCPCS: 87430; 96372; 99283; J0561; J1885; J2930

== ENCOUNTER 2020-01-04 08:49 | Emergency (ER) | payer BC ==
[2020-01-04 08:59] VITALS: BP 220/117; PULSE 105
[2020-01-04] MEDS ORDERED: Sodium Chloride 0.9% 10 ML Syringe FLUSH PRN (09:17)
[2020-01-04] MEDS ORDERED: Ondansetron 4 MG/2 ML SDV IVPUSH ONE (09:17)
[2020-01-04] MEDS ORDERED: HYDROmorphone 1 MG/ML Syringe IVPUSH ONE (09:18)
--- NOTE | 2020-01-04 09:26 | EDM.PDOC ---
<Bri Vela - Last Filed: 01/04/20 09:16> ED HPI GENERAL MEDICAL PROBLEM - General Chief Complaint: Abdominal Pain Stated Complaint: HIGH BP Time Seen by Provider: 01/04/20 08:53 Source of Information: Reports: Patient History Limitations: Reports: No Limitations - History of Present Illness INITIAL COMMENTS - FREE TEXT/NARRATIVE: Patient is a pleasant 34-year-old [id number] female who was sent to the ED from Dr. Ribera's office today for evaluation of high blood pressure and lower abdominal pain. She was at Dr. Ribera's office to be evaluated for heavy and frequent menstrual periods when her BP was noted to be in 200s/100s. She reports for the past three months she has been getting her period every two weeks that typically will last 7-9 days and for the first three days she goes through a pad an hour and then the frequency of pad changes decreases over the next 4-6 days. She reports her last period ended two days ago and lasted about nine days. For the past three days she has had constant lower abdominal cramping and bloating, and a sharp, 8/10, pain in the right lower quadrant. She reports that she has felt more fatigued and had fever/chills for the past two days as well. She has tried taking ibuprofen for the abdominal pain/ cramping, but she reports this has only taken the edge off. She reports she has a history of previous fibroids and ovarian cysts in the past. She had a tubal ligation about 2.5 years ago after the of her third child. Previous menstrual periods occurred every 24-28 days with a duration of 4-5 days. 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 Right Lower Abdominal Pain Score (Numeric/FACES): 8 - Related Data Allergies Allergy/AdvReac Type Severity Reaction Status Date / Time cyclobenzaprine HCl AdvReac Tachycardia Verified 01/04/20 08:59 [From Flexeril] morphine AdvReac Nausea and Verified 01/04/20 08:59 Vomiting Home Meds: Home Meds Hydrocodone/Acetaminophen [Hydrocodon-Acetaminophen 5-325] 1 - 2 each PO Q6HR PRN #10 tablet 01/04/20 [Rx] hydroCHLOROthiazide [Hydrochlorothiazide] 12.5 mg PO BEDTIME #30 cap 01/04/20 [ Rx] Past Medical History Cardiovascular History: Reports: Hypertension Other Cardiovascular History: during 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 History: Reports: , Other (See Below) Other 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 History: ovarian cysts Musculoskeletal History: Reports: Other (See Below) Other Musculoskeletal History: Buldging disc - Past Surgical History Female Surgical History: Reports: Section, Tubal Ligation Neurological Surgical History: Reports: Other (See Below) Other Neurological Surgeries/Procedures: numbness/tingling to fingertips Social & Family History - Family History Family Medical History: Noncontributory Cardiac: Reports: Hypertension, [place] Endocrine/Metabolic: Reports: Diabetes, type II Oncologic: Reports: Bone, Brain - Caffeine Use Caffeine Use: Reports: Energy Drinks Other Caffeine Use: Occasional - Living Situation & Occupation Living situation: Reports: Single, with Significant Other, with Family Occupation: Employed ED ROS GENERAL - Review of Systems Review Of Systems: See Below Constitutional: Reports: Fever, Chills, Fatigue Respiratory: Reports: No Symptoms. Denies: Shortness of Breath, Wheezing, Cough Cardiovascular: Reports: No Symptoms. Denies: Chest Pain, Lightheadedness, Syncope GI/Abdominal: Reports: Abdominal Pain (bilateral lower quadrants). Denies: Diarrhea, Nausea, Vomiting : Reports: Irregular Menses (menstrual periods every two weeks), Pain (lower abdominal cramping) Musculoskeletal: Reports: No Symptoms. Denies: Muscle Stiffness Skin: Reports: No Symptoms. Denies: Rash, Erythema Neurological: Reports: Headache (occasional). Denies: Numbness, Syncope, Tingling, Weakness Psychiatric: Reports: No Symptoms ED EXAM, GI/ABD - Physical Exam Exam: See Below Exam Limited By: No Limitations General Appearance: Alert, WD/WN, Mild Distress Respiratory/Chest: No Respiratory Distress, Lungs Clear, Normal Breath Sounds, Chest Non-Tender Cardiovascular: Normal Peripheral Pulses, No Edema, No Murmur, Tachycardia GI/Abdominal Exam: Normal Bowel Sounds, Soft, No Organomegaly, Guarding, Tender (bilateral lower quadrants, more on the right) Back Exam: Normal Inspection, Full Range of Motion. No: CVA Tenderness (L), CVA Tenderness (R) Extremities: Normal Inspection, Normal Range of Motion, Non-Tender, No Pedal Edema, Normal Capillary Refill Neurological: Alert, Oriented, Normal Cognition, No Motor/Sensory Deficits Psychiatric: Normal Affect, Normal Mood Skin Exam: Warm, Dry, Intact, No Rash Lymphatic: No Adenopathy Course - Vital Signs Last Recorded V/S: Last Vital Signs Temp 98.7 F 01/04/20 08:57 Pulse 105 H 01/04/20 08:57 Resp 16 01/04/20 08:57 BP 220/117 H 01/04/20 08:57 Pulse Ox 96 01/04/20 08:57 - Orders/Labs/Meds Orders: Active Orders 24 hr Category Date Time Status Peripheral IV Care [RC] . DIRECTED Care 01/04/20 09:18 Active Transvaginal Non OB [US] Stat Exams 01/04/20 09:18 Taken Sodium Chloride 0.9% [Normal Saline] 1,000 ml Med 01/04/20 09:30 Active IV ASDIRECTED Sodium Chloride 0.9% [Saline Flush] Med 01/04/20 09:17 Active 10 ml FLUSH ASDIRECTED PRN ED Antiemetic Medication Reflex [OM.PC] Stat Oth 01/04/20 09:17 Ordered Peripheral IV Insertion Adult [OM.PC] Stat Oth 01/04/20 09:17 Ordered Medication Orders Sodium Chloride (Normal Saline) 1,000 mls @ 125 mls/hr IV ASDIRECTED TERRY Last Admin: 01/04/20 09:25 Dose: 125 mls/hr Sodium Chloride (Saline Flush) 10 ml FLUSH ASDIRECTED PRN PRN Reason: Keep Vein Open Last Admin: 01/04/20 09:25 Dose: 10 ml Labs: Laboratory Tests 01/04/20 01/04/20 01/04/20 Range/Units 09:27 09:27 09:27 WBC 9.48 (3.98-10.04) K/mm3 RBC 4.55 (3.98-5.22) M/mm3 Hgb 14.7 (11.2-15.7) gm/dl Hct 43.3 (34.1-44.9) % MCV 95.2 H D (79.4-94.8) fl MCH 32.3 H (25.6-32.2) pg MCHC 33.9 (32.2-35.5) g/dl RDW Std Deviation 43.4 (36.4-46.3) fL Plt Count 254 D (182-369) K/mm3 MPV 10.2 (9.4-12.3) fl Neut % (Auto) 59.7 (34.0-71.1) % Lymph % (Auto) 28.3 (19.3-51.7) % Banner % (Auto) 10.1 (4.7-12.5) % Eos % (Auto) 1.2 (0.7-5.8) Baso % (Auto) 0.4 (0.1-1.2) % Neut # (Auto) 5.66 (1.56-6.13) K/mm3 Lymph # (Auto) 2.68 (1.18-3.74) K/mm3 Banner # (Auto) 0.96 H (0.24-0.36) K/mm3 Eos # (Auto) 0.11 (0.04-0.36) K/mm3 Baso # (Auto) 0.04 (0.01-0.08) K/mm3 Sodium 140 (136-145) mEq/L Potassium 3.8 (3.5-5.1) mEq/L Chloride 103 (98-107) mEq/L Carbon Dioxide 26 (21-32) mEq/L Anion Gap 14.8 (5-15) BUN 10 (7-18) mg/dL Creatinine 0.5 L (0.55-1.02) mg/dL Est Cr Clr Drug Dosing 111.73 mL/min Estimated GFR (MDRD) > 60 (>60) mL/min BUN/Creatinine Ratio 20.0 H (14-18) Glucose 96 (74-106) mg/dL Calcium 9.3 (8.5-10.1) mg/dL Total Bilirubin 0.4 (0.2-1.0) mg/dL AST 54 H (15-37) U/L ALT 106 H (14-59) U/L Alkaline Phosphatase 61 (46-116) U/L Total Protein 7.6 (6.4-8.2) g/dl Albumin 3.8 (3.4-5.0) g/dl Globulin 3.8 gm/dL Albumin/Globulin Ratio 1.0 (1-2) Lipase 77 (73-393) U/L HCG, Qual Negative (NEGATIVE) Meds: Medications Generic Name Dose Route Start Last Admin Trade Name Raiza PRN Reason Stop Dose Admin Sodium Chloride 1,000 mls @ 125 mls/hr 01/04/20 09:30 01/04/20 09:25 Normal Saline IV 125 mls/hr ASDIRECTED TERRY Administration Sodium Chloride 10 ml 01/04/20 09:17 01/04/20 09:25 Saline Flush FLUSH 10 ml ASDIRECTED PRN Administration Keep Vein Open Discontinued Medications Generic Name Dose Route Start Last Admin Trade Name Raiza PRN Reason Stop Dose Admin Hydromorphone HCl 1 mg 01/04/20 09:18 01/04/20 09:25 Dilaudid IVPUSH 01/04/20 09:19 1 mg ONETIME ONE Administration Ondansetron HCl 4 mg 01/04/20 09:17 01/04/20 09:25 Zofran IVPUSH 01/04/20 09:18 4 mg ONETIME ONE Administration Departure - Departure Disposition: Home, Self-Care 01 Clinical Impression: Pelvic pain, Vaginal bleeding Hypertension Qualifiers: Hypertension type: essential hypertension Qualified Code(s): I10 - Essential ( primary) hypertension - Discharge Information Prescriptions: Hydrocodone/Acetaminophen [Hydrocodon-Acetaminophen 5-325] 1 - 2 each PO Q6HR PRN #10 tablet PRN Reason: Pain hydroCHLOROthiazide [Hydrochlorothiazide] 12.5 mg PO BEDTIME #30 cap Referrals: Karey Ribera MD [Primary Care Provider] - 1 Week Forms: ED Department Discharge Additional Instructions: Take the hydrochlorothiazide 12.5mg at night. Take tylenol or motrin for pain. If that does not help, try the hydrocodone. Follow up with Dr Ribera. Please return if you are worse. Sepsis Event Note - Evaluation Sepsis Screening Result: No Definite Risk - Focused Exam Vital Signs: Vital Signs Temp Pulse Resp BP Pulse Ox 01/04/20 08:57 98.7 F 105 H 16 220/117 H 96 Date Exam was Performed: 01/04/20 Time Exam was Performed: 09:16 - My Orders Last 24 Hours: My Active Orders 01/04/20 09:17 Sodium Chloride 0.9% [Saline Flush] 10 ml FLUSH ASDIRECTED PRN ED Antiemetic Medication Reflex [OM.PC] Stat Peripheral IV Insertion Adult [OM.PC] Stat 01/04/20 09:18 Peripheral IV Care [RC] . DIRECTED Transvaginal Non OB [US] Stat 01/04/20 09:30 Sodium Chloride 0.9% [Normal Saline] 1,000 ml IV ASDIRECTED - Assessment/Plan Last 24 Hours: My Active Orders 01/04/20 09:17 Sodium Chloride 0.9% [Saline Flush] 10 ml FLUSH ASDIRECTED PRN ED Antiemetic Medication Reflex [OM.PC] Stat Peripheral IV Insertion Adult [OM.PC] Stat 01/04/20 09:18 Peripheral IV Care [RC] . DIRECTED Transvaginal Non OB [US] Stat 01/04/20 09:30 Sodium Chloride 0.9% [Normal Saline] 1,000 ml IV ASDIRECTED <Felipe Marquez - Last Filed: 01/04/20 10:58> Course - Re-Assessments/Exams Free Text/Narrative Re-Assessment/Exam: 01/04/20 10:51 I examined the patient myself and I agree with Bri's assessment and plan. I have ordered labs, transvaginal US, zofran 4mg IV and dilaudid for pain. Her CBC looks good. Her creatinin was low at 0.5. Her AST is elevated at 54. Her ALT was elevated at 106. Her lipase is negative. Her HCG is negative. Her US shows findings believed to be incidental. No definite fibroid change is seen on current exam. Nothing acute is definitely appreciated. She feels better. Her BP is coming down but she will need to get on something. I will start her on some HCTZ. Departure - Departure Time of Disposition: 10:55 Condition: Good - Discharge Information *PRESCRIPTION DRUG MONITORING PROGRAM REVIEWED*: No *COPY OF PRESCRIPTION DRUG MONITORING REPORT IN PATIENT KANWAL: No Sepsis Event Note - Focused Exam Date Exam was Performed: 01/04/20 Time Exam was Performed: 10:51
[2020-01-04] MEDS ORDERED: Sodium Chloride 0.9% 1,000 ML IV SCH (09:30)
--- NOTE | 2020-01-04 11:04 | US ---
Pelvic ultrasound: Multiple real-time images were obtained transvaginally. Comparison: Previous pelvic ultrasound study of 01/05/19. Uterus is anteverted. Small amount of free fluid is seen within the cul-de-sac. Right and left ovaries appear within normal limits. Small cystic area is noted within the endometrial cavity believed to be incidental. Small calcification is seen within the subendometrial region. No definite fibroid change is seen on current study. Measurements: Uterus: Length 9.3 cm, AP height is 4.5 cm, transverse width 5.9 cm Right ovary: 2.8 x 1.9 x 3.1 cm Left ovary: 2.4 x 1.4 x 1.7 cm. Impression: 1. Findings as noted above believed to be incidental. 2. No definite fibroid change is seen on current exam. 3. Nothing acute is definitely appreciated. Diagnostic code #2 Study was dictated in [place] Standard Time
== END 2020-01-04 11:07 | disposition home or self-care (01) ==
LOC: JD.ED 08:49
DX: N93.9 Abnormal uterine and vaginal bleeding, unspecified (principal); I10 Essential (primary) hypertension; Z88.1 Allergy status to other antibiotic agents; Z88.5 Allergy status to narcotic agent; Z98.51 Tubal ligation status
CPT/HCPCS: 36415; 76830; 80053; 83690; 84703; 85025; 96361; 96374; 96375; 99284; J1170; J2405; J7030; 99283

== ENCOUNTER 2020-03-25 10:53 | Emergency (ER) | payer BC ==
[2020-03-25] MEDS ORDERED: Ketorolac 30 MG/ML SDV IVPUSH ONE (11:27)
[2020-03-25] MEDS ORDERED: diphenhydrAMINE 50 MG/ML SDV IVPUSH ONE (11:27)
[2020-03-25] MEDS ORDERED: Sodium Chloride 0.9% 1,000 ML IV SCH ×2 (11:30→13:00)
[2020-03-25] MEDS ORDERED: Ondansetron 4 MG/2 ML SDV IVPUSH ONE (11:31)
--- NOTE | 2020-03-25 11:38 | EDM.PDOC ---
ED HPI GENERAL MEDICAL PROBLEM - General Chief Complaint: Cardiovascular Problem Stated Complaint: HBP Time Seen by Provider: 03/25/20 11:05 Source of Information: Reports: Patient History Limitations: Reports: No Limitations - History of Present Illness INITIAL COMMENTS - FREE TEXT/NARRATIVE: Shellie Hitchcock is a 34-year-old female who presents the emergency room with chief complaints of elevated hypertension and headache that started this morning and is progressively getting worse. She reports that she woke up her right side of her head was hurting similar to a migraine that she has had in the past she checked her blood pressure which was elevated. She reports that she took her hydrochlorothiazide 12.5 mg and her symptoms are getting worse. She reports that she feels like her heart is racing and she is currently short of breath, she denies any chest pain. Patient does have a history of hypertension, migraines tubal and ovarian cyst. She reports that Dr. Tolentino is managing her blood pressure she was started on her medication 3 months ago Onset: Today Onset Date: 03/25/20 Onset Time: 09:00 Duration: Getting Worse Location: Reports: Head, Chest Quality: Reports: Pressure, Throbbing Severity: Mild Improves with: Reports: None Worsens with: Reports: Breathing Associated Symptoms: Reports: Headaches, Shortness of Breath. Denies: Fever/ Chills, Nausea/Vomiting Bilateral Hand Pain Score (Numeric/FACES): 8 - Related Data Allergies Allergy/AdvReac Type Severity Reaction Status Date / Time cyclobenzaprine HCl AdvReac Tachycardia Verified 03/25/20 11:05 [From Flexeril] morphine AdvReac Nausea and Verified 03/25/20 11:05 Vomiting Home Meds: Home Meds Potassium Chloride 20 meq PO ASDIRECTED #4 tablet.er 03/25/20 [Rx] hydroCHLOROthiazide [Hydrochlorothiazide] 25 mg PO DAILY #30 tab 03/25/20 [Rx] Past Medical History Cardiovascular History: Reports: Hypertension Other Cardiovascular History: during [employer] History: Reports: , Other (See Below) Other [employer] History: ovarian cysts Musculoskeletal History: Reports: Other (See Below) Other Musculoskeletal History: Buldging disc - Past Surgical History Female Surgical History: Reports: Section, Tubal Ligation Neurological Surgical History: Reports: Other (See Below) Other Neurological Surgeries/Procedures: numbness/tingling to fingertips Social & Family History - Family History Family Medical History: Noncontributory Cardiac: Reports: Hypertension, [place] Endocrine/Metabolic: Reports: Diabetes, type II Oncologic: Reports: Bone, Brain - Tobacco Use Smoking Status *Q: Current Every Day Smoker Years of Tobacco use: 10 Packs/Tins Daily: 0.5 - Caffeine Use Caffeine Use: Reports: Soda Other Caffeine Use: 1-2 cans pop/day - Recreational Drug Use Recreational Drug Use: No - Living Situation & Occupation Living situation: Reports: Single, with Significant Other, with Family Occupation: Employed ED ROS GENERAL - Review of Systems Review Of Systems: Comprehensive ROS is negative, except as noted in HPI. Constitutional: Denies: Fever, Chills Respiratory: Reports: Shortness of Breath Cardiovascular: Denies: Chest Pain Endocrine: Reports: Fatigue GI/Abdominal: Denies: Abdominal Pain, Constipation, Diarrhea, Nausea, Vomiting : Denies: No Symptoms Musculoskeletal: Denies: Neck Pain Skin: Reports: No Symptoms Neurological: Reports: Headache Psychiatric: Reports: Anxiety Hematologic/Lymphatic: Reports: No Symptoms Immunologic: Reports: No Symptoms ED EXAM, GENERAL - Physical Exam Exam: See Below Exam Limited By: No Limitations General Appearance: Alert, WD/WN, No Apparent Distress Eye Exam: Bilateral Eye: EOMI, PERRL Ears: Normal External Exam, Normal Canal, Hearing Grossly Normal, Normal TMs Ear Exam: Bilateral Ear: Auricle Normal, Canal Normal, TM normal Nose: Normal Inspection, Normal Mucosa, No Blood Throat/Mouth: Normal Inspection, Normal Lips, Normal Teeth, Normal Gums, Normal Oropharynx, Normal Voice, No Airway Compromise Head: Atraumatic, Normocephalic Neck: Normal Inspection, Supple, Non-Tender, Full Range of Motion Respiratory/Chest: No Respiratory Distress, Lungs Clear, Normal Breath Sounds, No Accessory Muscle Use, Chest Non-Tender, Other (talking in full sentences, no distress noted) Cardiovascular: Normal Peripheral Pulses, No Edema, No Gallop, No JVD, No Murmur , No Rub, Tachycardia. No: JVD GI/Abdominal: Normal Bowel Sounds, Soft, Non-Tender, No Distention Back Exam: Normal Inspection, Full Range of Motion Extremities: Normal Inspection, Normal Range of Motion, Non-Tender, No Pedal Edema, Normal Capillary Refill Neurological: Alert, Oriented, CN II-XII Intact, Normal Cognition, Normal Gait, Normal Reflexes, No Motor/Sensory Deficits Psychiatric: Normal Affect, Anxious Skin Exam: Warm, Dry, Intact, Normal Color, No Rash Lymphatic: No Adenopathy EKG INTERPRETATION EKG Date: 03/25/20 Time: 11:08 EKG Interpretation Comments: LAE consider bilateral enlargement Course - Vital Signs Last Recorded V/S: Last Vital Signs Temp 98.5 F 03/25/20 14:35 Pulse 80 03/25/20 14:35 Resp 18 03/25/20 14:35 BP 174/92 H 03/25/20 14:35 Pulse Ox 97 03/25/20 14:35 - Orders/Labs/Meds Orders: Active Orders 24 hr Category Date Time Status EKG Documentation Completion [RC] ASDIRECTED Care 03/25/20 11:07 Active Lactated Ringers [Ringers, Lactated] 1,000 ml Med 03/25/20 13:30 Active IV ASDIRECTED Sodium Chloride 0.9% [Normal Saline] 1,000 ml Med 03/25/20 11:30 Active IV ASDIRECTED EKG 12 Lead [EK] Stat Ther 03/25/20 11:07 Ordered Medication Orders Sodium Chloride (Normal Saline) 1,000 mls @ 999 mls/hr IV ASDIRECTED TERRY Last Admin: 03/25/20 11:50 Dose: 999 mls/hr Lactated Ringer's (Ringers, Lactated) 1,000 mls @ 999 mls/hr IV ASDIRECTED TERRY Last Admin: 03/25/20 13:55 Dose: 999 mls/hr Labs: Laboratory Tests 03/25/20 03/25/20 03/25/20 Range/Units 11:35 11:45 11:45 WBC 11.85 H (3.98-10.04) K/mm3 RBC 5.19 (3.98-5.22) M/mm3 Hgb 16.6 H D (11.2-15.7) gm/dl Hct 46.4 H (34.1-44.9) % MCV 89.4 D (79.4-94.8) fl MCH 32.0 (25.6-32.2) pg MCHC 35.8 H (32.2-35.5) g/dl RDW Std Deviation 40.2 (36.4-46.3) fL Plt Count 504 H D (182-369) K/mm3 MPV 8.8 L (9.4-12.3) fl Neut % (Auto) 69.3 (34.0-71.1) % Lymph % (Auto) 20.3 (19.3-51.7) % [place] % (Auto) 9.6 (4.7-12.5) % Eos % (Auto) 0.2 L (0.7-5.8) Baso % (Auto) 0.3 (0.1-1.2) % Neut # (Auto) 8.21 H (1.56-6.13) K/mm3 Lymph # (Auto) 2.41 (1.18-3.74) K/mm3 [place] # (Auto) 1.14 H (0.24-0.36) K/mm3 Eos # (Auto) 0.02 L (0.04-0.36) K/mm3 Baso # (Auto) 0.04 (0.01-0.08) K/mm3 Manual Slide Review Abnormal smear Sodium 131 L (136-145) mEq/L Potassium 2.6 L (3.5-5.1) mEq/L Chloride 91 L D (98-107) mEq/L Carbon Dioxide 22 (21-32) mEq/L Anion Gap 20.6 H (5-15) BUN 12 (7-18) mg/dL Creatinine 0.9 (0.55-1.02) mg/dL Est Cr Clr Drug Dosing 62.07 mL/min Estimated GFR (MDRD) > 60 (>60) mL/min BUN/Creatinine Ratio 13.3 L (14-18) Glucose 109 H (74-106) mg/dL Calcium 8.6 (8.5-10.1) mg/dL Total Bilirubin 2.1 H (0.2-1.0) mg/dL AST 28 (15-37) U/L ALT 30 (14-59) U/L Alkaline Phosphatase 74 (46-116) U/L Total Protein 8.4 H (6.4-8.2) g/dl Albumin 4.4 (3.4-5.0) g/dl Globulin 4.0 gm/dL Albumin/Globulin Ratio 1.1 (1-2) Urine Opiates Screen Negative (UZYAPJ=676) Ur Buprenorphine Scrn Negative (CUTOFF=10) Ur Oxycodone Screen Negative (XQQ0PU=362) Urine Methadone Screen Negative (MVIJPP=495) Ur Propoxyphene Screen Negative (ERPQDQ=440) Ur Barbiturates Screen Negative (RGGGCE=990) Ur Tricyclics Screen Negative (HGCILU=708) Ur Phencyclidine Scrn Negative (CUTOFF=25) Ur Amphetamine Screen Negative (XUFJUQ=689) U Methamphetamines Scrn Negative (OPHSVE=839) U Benzodiazepines Scrn Negative (ZOLXDS=270) U Cocaine Metab Screen Negative (VNWIMU=734) U Marijuana (THC) Screen Negative (CUTOFF=50) Meds: Medications Generic Name Dose Route Start Last Admin Trade Name Freq PRN Reason Stop Dose Admin Sodium Chloride 1,000 mls @ 999 mls/hr 03/25/20 11:30 03/25/20 11:50 Normal Saline IV 999 mls/hr ASDIRECTED TERRY Administration Lactated Ringer's 1,000 mls @ 999 mls/hr 03/25/20 13:30 03/25/20 13:55 Ringers, Lactated IV 999 mls/hr ASDIRECTED TERRY Administration Discontinued Medications Generic Name Dose Route Start Last Admin Trade Name Freq PRN Reason Stop Dose Admin Diphenhydramine HCl 25 mg 03/25/20 11:27 03/25/20 11:48 Benadryl IVPUSH 03/25/20 11:28 25 mg ONETIME ONE Administration Haloperidol Lactate 5 mg 03/25/20 13:27 03/25/20 13:52 Haldol IM 03/25/20 13:28 5 mg ONETIME ONE Administration Sodium Chloride 1,000 mls @ 999 mls/hr 03/25/20 13:00 Normal Saline IV ASDIRECTED TERRY Ketorolac Tromethamine 30 mg 03/25/20 11:27 03/25/20 11:50 Toradol IVPUSH 03/25/20 11:28 30 mg ONETIME ONE Administration Lisinopril 5 mg 03/25/20 14:02 03/25/20 14:34 Prinivil PO 03/25/20 14:03 5 mg ONETIME ONE Administration Ondansetron HCl 4 mg 03/25/20 11:31 03/25/20 11:46 Zofran IVPUSH 03/25/20 11:32 4 mg ONETIME ONE Administration Potassium Chloride 40 meq 03/25/20 12:55 03/25/20 13:47 Klor-Con M20 PO 03/25/20 12:56 40 meq ONETIME ONE Administration - Re-Assessments/Exams Free Text/Narrative Re-Assessment/Exam: 03/25/20 11:50 Shellie Hitchcock is a 34-year-old female who presents emergency room with chief complaints of hypertension and headache that started this morning. Since then she has developed shortness of breath, anxiety and right-sided headache. I will order an EKG to evaluate and rule out [place]. I will order a chest x-ray since she is short of breath. I will give a bolus of normal saline, medicate with Toradol, Reglan and Zofran for her headache. Do not feel the patient needs a troponin at this time since she is not having chest pain. I do not feel that she needs a d-dimer since she has not traveled long distances and is not on no hormone therapy. I will order a CBC to rule out anemia or other underlying causes. In addition I will order a Chem-7 to evaluate electrolytes and urine drug screen. 03/25/20 12:04 Patient reports she is feeling better, her heart rate is 90 b/p 154/99. 100 % on room air. 03/25/20 14:13 b/p remains elevated 182/98. I will medicate with Lisinopril 5 mg po. 03/25/20 14:37 Patient reports that she feels better and that her headache has decreased. 03/25/20 14:52 She is resting comfortably face status has improved. Her heart rate is 79 oxygen level 99% on room air 174/92. She is stable and ready for discharge. I will discharge home with potassium supplement and increase her HCTZ to 25 mg daily. Instructed patient to follow-up with her primary care doctor for further evaluation and treatment of her hypertension. Instructed patient to return to the emergency room for any new or acute worsening symptoms. Patient verbalized understanding this, plan for discharge. Patient stable at time of discharge. Departure - Departure Time of Disposition: 14:54 Disposition: Home, Self-Care 01 Condition: Good Clinical Impression: Hypokalemia Hypertension Qualifiers: Hypertension type: essential hypertension Qualified Code(s): I10 - Essential ( primary) hypertension Prescriptions: hydroCHLOROthiazide [Hydrochlorothiazide] 25 mg PO DAILY #30 tab Potassium Chloride 20 meq PO ASDIRECTED #4 tablet.er Instructions: Hypertension, Adult, [id number], Potassium Content of Foods Referrals: Faith Barlow PA-C [Primary Care Provider] - Forms: ED Department Discharge Additional Instructions: You were seen and evaluated today for high blood pressure and headache. Your lab studies were unremarkable except your potassium and chloride were low. You have been prescribed a potassium pill take this as directed. I recommend that you increase your potassium intake. You can do this by eating bananas, peanut butter, potatoes and raisins. Follow-up with your primary care doctor for further management and treatment of your high blood pressure. I am going to increase her hydrochlorothiazide to 25 mg daily. You may take Tylenol ibuprofen as needed for your headaches. Your EKG revealed sinus tachycardia no other acute findings. Your chest x-ray was unremarkable did not show any heart enlargement or heart failure or other acute findings. I recommend you increase your fluid intake. Turn to the emergency room for any new or acute worsening symptoms. Sepsis Event Note - Evaluation Sepsis Screening Result: No Definite Risk - Focused Exam Vital Signs: Vital Signs Temp Pulse Resp BP BP Pulse Ox 03/25/20 14:35 98.5 F 80 18 174/92 H 97 03/25/20 14:34 174/92 H 03/25/20 11:02 98.7 F 163 H 22 H 250/124 H 97 Date Exam was Performed: 03/25/20 Time Exam was Performed: 14:59 - My Orders Last 24 Hours: My Active Orders 03/25/20 11:07 EKG Documentation Completion [RC] ASDIRECTED EKG 12 Lead [EK] Stat 03/25/20 11:30 Sodium Chloride 0.9% [Normal Saline] 1,000 ml IV ASDIRECTED 03/25/20 13:30 Lactated Ringers [Ringers, Lactated] 1,000 ml IV ASDIRECTED - Assessment/Plan Last 24 Hours: My Active Orders 03/25/20 11:07 EKG Documentation Completion [RC] ASDIRECTED EKG 12 Lead [EK] Stat 03/25/20 11:30 Sodium Chloride 0.9% [Normal Saline] 1,000 ml IV ASDIRECTED 03/25/20 13:30 Lactated Ringers [Ringers, Lactated] 1,000 ml IV ASDIRECTED
--- NOTE | 2020-03-25 12:00 | CR ---
Chest: Portable view of the chest were obtained. Comparison: No previous chest imaging. Heart size and mediastinum are normal. Lungs are clear with no acute parenchymal change. Minimal scoliosis is noted. Impression: 1. Nothing acute is seen on portable chest x-ray. Diagnostic code #1 This report was dictated in MDT
[2020-03-25] MEDS ORDERED: Potassium Chloride 20 MEQ Tab.ER PO ONE (12:55)
[2020-03-25] MEDS ORDERED: Haloperidol Lactate 5 MG/ML SDV IM ONE (13:27)
[2020-03-25] MEDS ORDERED: Lactated Ringers 1,000 ML IV SCH (13:30)
[2020-03-25] MEDS ORDERED: Lisinopril 5 MG Tab PO ONE (14:02)
[2020-03-25 15:43] VITALS: BP 173/97; PULSE 85
== END 2020-03-25 15:40 | disposition home or self-care (01) ==
LOC: JD.ED 10:53
DX: I10 Essential (primary) hypertension (principal); E87.6 Hypokalemia; F17.210 Nicotine dependence, cigarettes, uncomplicated; Z88.5 Allergy status to narcotic agent; Z88.8 Allergy status to other drugs, medicaments and biological substances; Z79.899 Other long term (current) drug therapy
CPT/HCPCS: 36415; 71045; 80053; 80306; 85025; 93005; 96361; 96372; 96374; 96375; 99284; A9270; J1200; J1630; J1885; J2405; J7030; J7120

== ENCOUNTER 2020-06-30 18:52 | Emergency (ER) | payer SELFPAY ==
[2020-06-30 19:25] VITALS: BP 185/124; PULSE 126
[2020-06-30] MEDS ORDERED: Ondansetron 4 MG Tab.DIS PO ONE (19:46)
[2020-06-30] MEDS ORDERED: Dexamethasone 10 MG/ML SDV IM ONE (19:46)
[2020-06-30] MEDS ORDERED: Ketorolac 30 MG/ML SDV IM ONE (19:48)
--- NOTE | 2020-06-30 19:59 | EDM.PDOC ---
ED HPI GENERAL MEDICAL PROBLEM - General Chief Complaint: Fever Stated Complaint: FEVER COUGH SORE THROAT Time Seen by Provider: 06/30/20 19:16 Source of Information: Reports: Patient, RN Notes Reviewed History Limitations: Reports: No Limitations - History of Present Illness INITIAL COMMENTS - FREE TEXT/NARRATIVE: Patient is a 35-year-old female who presents to the ED for the evaluation of her fever, cough, and sore throat. Patient notes that her fever has been as high as 100.7 F. She did take 650 mg of Tylenol at noon, and states she has been taking ibuprofen on a scheduled every 6 hour basis as well. Patient is complaining of a sore throat, states that the left side seems to be more sore than the right, but notes that she has not really been eating much, as it is very difficult to swallow due to the pain. She has been using the [id number] Chloraseptic spray every 2 hours as needed as well. Patient is still able to drink fluids. Patient notes that the sore throat started on Saturday, and then all the other symptoms seem to follow. 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 Patient denies any recent bad habits, states that she stopped smoking 1-1/2 months ago. She complains of fevers/chills, cough/sore throat, mild nausea, but denies any other sick-like symptoms at this time. Blood pressure at initial exam is mildly elevated but she states that she recently lost her job and her health insurance, so she is not taking her blood pressure medications as prescribed as she cannot afford them. Throat Pain Score (Numeric/FACES): 10 - Related Data Allergies Allergy/AdvReac Type Severity Reaction Status Date / Time cyclobenzaprine HCl AdvReac Tachycardia Verified 03/25/20 11:05 [From Flexeril] morphine AdvReac Nausea and Verified 03/25/20 11:05 Vomiting Home Meds: Home Meds hydroCHLOROthiazide [Hydrochlorothiazide] 25 mg PO DAILY #30 tab 03/25/20 [Rx] Past Medical History Cardiovascular History: Reports: Hypertension Other Cardiovascular History: during [employer] History: Reports: , Other (See Below) Other [employer] History: ovarian cysts Musculoskeletal History: Reports: Other (See Below) Other Musculoskeletal History: Bulging disc - Past Surgical History Female Surgical History: Reports: Section, Tubal Ligation Neurological Surgical History: Reports: Other (See Below) Other Neurological Surgeries/Procedures: numbness/tingling to fingertips Social & Family History - Family History Family Medical History: Noncontributory Cardiac: Reports: Hypertension, [place] Endocrine/Metabolic: Reports: Diabetes, type II Oncologic: Reports: Bone, Brain - Tobacco Use Smoking Status *Q: Former Smoker Tobacco Use Within Last Twelve Months: Cigarettes Used Tobacco, but Quit: Yes Month/Year Tobacco Last Used: April 2020 - Caffeine Use Caffeine Use: Reports: Soda Other Caffeine Use: 1-2 cans pop/day - Recreational Drug Use Recreational Drug Use: No - Living Situation & Occupation Living situation: Reports: Single, with Significant Other, with Family Occupation: Employed ED ROS ENT - Review of Systems Review Of Systems: Comprehensive ROS is negative, except as noted in HPI. ED EXAM, ENT - Physical Exam Exam: See Below Exam Limited By: No Limitations General Appearance: Alert, WD/WN, No Apparent Distress Ears: Normal External Exam Nose: Normal Inspection Mouth/Throat: Normal Inspection, Normal Gums, Normal Lips, Normal Teeth, Pharyngeal Erythema (bilateral), Tonsillar Erythema (bilateral), Tonsillar Swelling (bilateral). No: Trismus, Uvular Deviation, Uvular Edema Head: Atraumatic, Normocephalic Neck: Normal Inspection, Supple, Tender Lateral (on anterior left neck with minimal palpation) Respiratory/Chest: No Respiratory Distress, Lungs Clear, Normal Breath Sounds, No Accessory Muscle Use, Chest Non-Tender Cardiovascular: Normal Peripheral Pulses, Regular Rate, Rhythm, No Murmur GI/Abdominal: Normal Bowel Sounds, Soft, Non-Tender, No Distention, No Mass Extremities: Normal Inspection, Normal Capillary Refill Neurological: Alert, Oriented, Normal Cognition, No Motor/Sensory Deficits Psychiatric: Normal Affect, Normal Mood Skin: Warm, Dry, Intact, Normal Color, No Rash Course - Vital Signs Last Recorded V/S: Last Vital Signs Temp 99.1 F 06/30/20 19:23 Pulse 126 H 06/30/20 19:23 Resp 20 06/30/20 19:23 BP 185/124 H 06/30/20 19:23 Pulse Ox 94 L 06/30/20 19:23 - Orders/Labs/Meds Orders: Active Orders 24 hr Category Date Time Status CORONAVIRUS COVID-19 PCR [facility] Routine Lab 06/30/20 20:10 Received Meds: Medications Discontinued Medications Generic Name Dose Route Start Last Admin Trade Name Raiza HUYNH Reason Stop Dose Admin Dexamethasone 10 mg 06/30/20 19:46 06/30/20 20:19 Dexamethasone IM 06/30/20 19:47 10 mg ONETIME ONE Administration Hydromorphone HCl 1 mg 06/30/20 20:59 06/30/20 21:22 Dilaudid IM 06/30/20 21:00 1 mg ONETIME ONE Administration Ketorolac Tromethamine 30 mg 06/30/20 19:48 06/30/20 20:17 Toradol IM 06/30/20 19:49 30 mg ONETIME ONE Administration Ondansetron HCl 4 mg 06/30/20 19:46 06/30/20 20:17 Zofran Odt PO 06/30/20 19:47 4 mg ONETIME ONE Administration Penicillin G Benzathine 1.2 millunits 06/30/20 20:58 06/30/20 21:22 Bicillin L-A IM 06/30/20 20:59 1.2 millunits ONETIME ONE Administration - Re-Assessments/Exams Free Text/Narrative Re-Assessment/Exam: 06/30/20 20:00 Patient presents to the ED for the evaluation of her fever/cough/sore throat. I do believe clinical course is more consistent with possible strep throat infection, nonetheless she will be swabbed for COVID that sent to the state, have a baseline chest x-ray taken, have a strep swab taken along with 30 mg IM Toradol for pain management and 10mg IM dexamethasone to help relieve the swelling in her throat, 4mg Zofran is also ordered for her mild nausea. 06/30/20 21:08 Patient was still noting quite a bit of pain in her throat. She will be picked up by her , I have ordered 1 mg IM Dilaudid for initial management of the throat pain, strep screen was also positive. She has opted for the intramuscular injection of penicillin. This has been ordered. Patient be discharged home with other general recommendations. The patient's chest x-ray shows no focal abnormalities. Departure - Departure Time of Disposition: 21:09 Disposition: Home, Self-Care 01 Condition: Good Clinical Impression: Strep throat - Discharge Information *PRESCRIPTION DRUG MONITORING PROGRAM REVIEWED*: No *COPY OF PRESCRIPTION DRUG MONITORING REPORT IN PATIENT KANWAL: No Instructions: Strep Throat, Adult, [id number] Referrals: PCP,None [Primary Care Provider] - Forms: ED Department Discharge Additional Instructions: You were evaluated in the ER today for your sore throat, fever, and other respiratory illnesses. You did test positive for strep throat, you did get a one-time injection of penicillin, for management of your sore throat, you should need no further medication for this. You may give use 500 mg Tylenol or 600 mg ibuprofen every 6 hours as needed for further pain/fever relief, do not exceed 4000 mg Tylenol or 3200 mg ibuprofen in a 24-hour time span. Please encourage fluid intake over the next few days, as your throat will still likely be sore, please try to stick to Gatorade, Powerade, or other clear liquids, advance to a soft diet as tolerated. You were swabbed for COVID-19, this test was sent to the state, we should receive positive or negative results, and a few days, please expect up to 3-5 business days, to be called with positive or negative results. We recommend you try to go home and self quarantine until you are notified of your results as much as possible. Please try to limit your exposure to others to help stop the potential spread. Please return to the ER at any time if your symptoms should change or worsen. Sepsis Event Note (ED) - Evaluation Sepsis Screening Result: No Definite Risk - Focused Exam Vital Signs: Vital Signs Temp Pulse Resp BP Pulse Ox 06/30/20 19:23 99.1 F 126 H 20 185/124 H 94 L - My Orders Last 24 Hours: My Active Orders 06/30/20 20:10 CORONAVIRUS COVID-19 PCR [facility] Routine - Assessment/Plan Last 24 Hours: My Active Orders 06/30/20 20:10 CORONAVIRUS COVID-19 PCR [facility] Routine
[2020-06-30] MEDS ORDERED: Penicillin G Benzathine 1,200,000 Units/2 ML Syringe IM ONE (20:58)
[2020-06-30] MEDS ORDERED: HYDROmorphone 1 MG/ML Syringe IM ONE (20:59)
--- NOTE | 2020-06-30 21:23 | CR ---
Chest: Portable view of the chest was obtained. Comparison: Prior chest x-ray of 03/25/20. Heart size and mediastinum are normal. Lungs are clear with no acute parenchymal change. Bony structures are grossly intact. Impression: 1. Nothing acute is seen on portable chest x-ray. Diagnostic code #1 This report was dictated in MDT
== END 2020-06-30 21:32 | disposition home or self-care (01) ==
LOC: JD.ED 18:52
DX: J02.0 Streptococcal pharyngitis (principal); I10 Essential (primary) hypertension; Z88.5 Allergy status to narcotic agent; Z88.8 Allergy status to other drugs, medicaments and biological substances; Z79.899 Other long term (current) drug therapy; Z98.890 Other specified postprocedural states; Z98.51 Tubal ligation status; Z87.891 Personal history of nicotine dependence; Z20.828 Contact with and (suspected) exposure to other viral communicable diseases
CPT/HCPCS: 71045; 87430; 87635; 96372; 99284; A9270; J0561; J1100; J1170; J1885; 99283; U0002

== ENCOUNTER 2021-11-14 04:55 | Emergency (ER) | payer SELFPAY ==
[2021-11-14] MEDS ORDERED: Ibuprofen 600 MG Tab PO ONE (05:53)
--- NOTE | 2021-11-14 05:56 | EDM.PDOC ---
<Alberto Blair Juani - Last Filed: 11/14/21 08:04> ED HPI GENERAL MEDICAL PROBLEM - General Chief Complaint: Respiratory Problem Stated Complaint: COVID COMPLICATIONS Time Seen by Provider: 11/14/21 05:31 Source of Information: Reports: Patient History Limitations: Reports: No Limitations - History of Present Illness INITIAL COMMENTS - FREE TEXT/NARRATIVE: Ms. Calderon is a pleasant 36-year-old woman who now presents the ED stating that she was diagnosed with COVID-19 on 11/19/2020, again in June 2021, and a third time on 10/26/2021. She did not receive monoclonal antibodies. She states that she has had a persistent nonproductive cough, headache, watery diarrhea, body aches, and chills. No recent fever, nausea, or vomiting. She states that she was seen at the walk-in clinic this past 11/10/2021, that a chest x- ray was unremarkable. She states that no prescriptions were given. She has been taking azwh-zgi-sxrbhhh Mucinex and ibuprofen, which have not been helping. At triage, the patient's initial BP was found to be elevated at 228/139, with tachycardia 135 bpm and tachypnea of 32 rpm. She is afebrile, saturating 98% on room air. Appears to be uncomfortable, coughing often, which seems to hurt. She does not appear to be in acute distress. The patient denies having a recent fever, sore throat, ear pain, nasal or sinus congestion, dyspnea, chest pain, palpitations, nausea, vomiting, constipation, abdominal pain, urinary symptoms, recent weight gain or weight loss, recent bloody bowel movements or black bowel movements, recent joint aches, or rashes. The patient's PCP is RENNY Pena. Her Line Assembly Utility Worker is Dr. Karey Ribera. She has not received a COVID vaccination, nor an influenza vaccination this season. 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: Reports: Other (See Below) (Ovarian cysts) - Infectious Disease History Infectious Disease History: Reports: Novel Coronavirus (dx'd 11/19/2020, Jun 2021, 10/26/2021) - Past Surgical History Female Surgical History: Reports: Section (x 1), Tubal Ligation Social & Family History - Tobacco Use Tobacco Use Status *Q: Former Tobacco User Years of Tobacco use: 20 Packs/Tins Daily: 0.3 Month/Year Tobacco Last Used: Quit 2019 Tobacco Use Comment: Started smoking 1999 - Caffeine Use Caffeine Use: Reports: Soda Other Caffeine Use: 1-2 cans pop/day - Alcohol Use Alcohol Use History: Yes Alcohol Use Frequency: Rarely - Recreational Drug Use Recreational Drug Use: Yes Drug Use in Last 12 Months: No Recreational Drug Type: Reports: Marijuana/Hashish (last smoked 2002) - Living Situation & Occupation Living situation: Reports: Single, with Family (3 kids) 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 ED EXAM, GENERAL - Physical Exam Exam: See Below Exam Limited By: No Limitations General Appearance: Alert, WD/WN, Mild Distress (appears uncomfortable - coughs often) Eye Exam: Bilateral Eye: EOMI, Normal Inspection Ears: Normal External Exam, Hearing Grossly Normal Nose: Normal Inspection Throat/Mouth: Normal Inspection, Normal Lips, Normal Voice, No Airway Compromise Head: Atraumatic, Normocephalic Neck: Normal Inspection, Full Range of Motion Respiratory/Chest: No Respiratory Distress, Lungs Clear, Normal Breath Sounds, No Accessory Muscle Use Cardiovascular: Normal Peripheral Pulses, Regular Rate, Rhythm, No Edema, No Gallop, No JVD, No Murmur, No Rub Peripheral Pulses: 3+: Radial (L), Radial (R) GI/Abdominal: Normal Bowel Sounds, Soft, Non-Tender, No Organomegaly, No Distention, No Abnormal Bruit, No Mass Back Exam: Normal Inspection, Full Range of Motion, NT Extremities: Normal Inspection, Normal Range of Motion, No Pedal Edema, Normal Capillary Refill Neurological: Alert, Oriented, Normal Cognition, No Motor/Sensory Deficits Psychiatric: Depressed Mood Skin Exam: Warm, Dry, Intact, Normal Color, No Rash Course - Re-Assessments/Exams Free Text/Narrative Re-Assessment/Exam: 11/14/21 05:53 I have ordered a work-up that includes a few blood tests and a CT angiogram of the chest to evaluate for a pulmonary embolus. In the meantime, the patient will be treated with some ibuprofen for her headache, and IV fluid. 11/14/21 07:33 The patient's CBC is remarkable for an H/H slightly elevated at 16.9/48.2, with the remainder of her CBC being unremarkable. Her BMP is remarkable for slight hyponatremia of 134, and mild hypokalemia of 3.0, with the remainder of her BMP being unremarkable. Her troponin is undetectably low. Based on the above, I have ordered 40 mEq of oral KCl. 11/14/21 07:57 CT angiogram of the chest is read by Dr. Acosta as: 1. No findings of pulmonary embolism. 2. Nothing acute is appreciated on CT study of the chest. 11/14/21 08:04 Test results discussed with the patient. I explained that, unfortunately, there does not appear to be anything that we can treat with respect to her symptoms. We are aware that cough medicines have no effect on the cough from COVID. I recommended that she stay adequately hydrated and take fuss-uqh-[id number] ibuprofen as needed for discomfort. I will get her a note to be off work until . Departure - Departure Time of Disposition: 08:05 Disposition: Home, Self-Care 01 Condition: Good Clinical Impression: Post-COVID chronic cough, Post-COVID chronic headache, Diarrhea - Discharge Information *PRESCRIPTION DRUG MONITORING PROGRAM REVIEWED*: Not Applicable *COPY OF PRESCRIPTION DRUG MONITORING REPORT IN PATIENT KANWAL: Not Applicable Instructions: COVID-19: What to Do If You Are Sick- [facility] (02/08/2021) Referrals: Faith Barlow PA-C [Primary Care Provider] - Karey Ribera MD [Physician] - Forms: ED Department Discharge Additional Instructions: You were seen in the emergency room for a persistent dry cough, headache, diarrhea, body aches, and chills in the setting of being diagnosed with COVID-19 for the third time on 10/26/2021. Work-up in the ER included several blood tests and a CT angiogram of your chest. Your blood work found your potassium to be modestly depressed at 3.0. You were given replacement potassium in the ER. The remainder of your work-up was unremarkable. As discussed, unfortunately, there are no medicines that have been shown to benefit a cough due to COVID-19. We therefore do not recommend that you use any tecd-itn-rilxjlk cough or cold remedies. We recommend that he stay adequately hydrated, and take mcpu-bqq-ksvpucx ibuprofen as needed for discomfort. If any other problems, please do not hesitate to return to the ER. Sepsis Event Note (ED) - Evaluation Sepsis Screening Result: Possible Sepsis Risk <Martin Mullins - Last Filed: 11/14/21 09:17> Course - Vital Signs Last Recorded V/S: Last Vital Signs Temp 36.6 C 11/14/21 05:29 Pulse 108 H 11/14/21 08:30 Resp 18 11/14/21 08:30 BP 200/113 H 11/14/21 08:30 Pulse Ox 98 11/14/21 08:30 - Orders/Labs/Meds Orders: Active Orders 24 hr Category Date Time Status Sodium Chloride 0.9% [Normal Saline] 1,000 ml Med 11/14/21 06:00 Active IV ASDIRECTED Medication Orders Sodium Chloride (Normal Saline) 1,000 mls @ 150 mls/hr IV ASDIRECTED TERRY Last Admin: 11/14/21 06:11 Dose: 150 mls/hr Documented by: RAIN Labs: Laboratory Tests 11/14/21 11/14/21 Range/Units 05:55 05:55 WBC 5.51 (3.98-10.04) K/mm3 RBC 5.26 H (3.98-5.22) M/mm3 Hgb 16.9 H (11.2-15.7) gm/dl Hct 48.2 H (34.1-44.9) % MCV 91.6 (79.4-94.8) fl MCH 32.1 (25.6-32.2) pg MCHC 35.1 (32.2-35.5) g/dl RDW Std Deviation 46.1 (36.4-46.3) fL Plt Count 281 D (182-369) K/mm3 MPV 9.2 L (9.4-12.3) fl Neutrophils % (Manual) 64 H (40-60) % Band Neutrophils % 4 (0-10) % Lymphocytes % (Manual) 24 (20-40) % Atypical Lymphs % 0 % Monocytes % (Manual) 8 (2-10) % Eosinophils % (Manual) 0 L (0.7-5.8) % Basophils % (Manual) 0 L (0.1-1.2) Platelet Estimate Adequate RBC Morph Comment Normal Sodium 134 L (136-145) mEq/L Potassium 3.0 L (3.5-5.1) mEq/L Chloride 97 L (98-107) mEq/L Carbon Dioxide 23 (21-32) mEq/L Anion Gap 17.0 H (5-15) BUN 10 (7-18) mg/dL Creatinine 0.7 (0.55-1.02) mg/dL Est Cr Clr Drug Dosing 78.27 mL/min Estimated GFR (MDRD) > 60 (>60) mL/min BUN/Creatinine Ratio 14.3 (14-18) Glucose 99 (70-99) mg/dL Calcium 8.5 (8.5-10.1) mg/dL Troponin I < 0.017 (0.00-0.056) ng/mL Meds: Medications Generic Name Dose Route Start Last Admin Trade Name Freq PRN Reason Stop Dose Admin Sodium Chloride 1,000 mls @ 150 mls/hr 11/14/21 06:00 11/14/21 06:11 Normal Saline IV 150 mls/hr ASDIRECTED TERRY Administration Discontinued Medications Generic Name Dose Route Start Last Admin Trade Name Freq PRN Reason Stop Dose Admin Acetaminophen 650 mg 11/14/21 07:46 11/14/21 07:56 Acetaminophen 325 Mg Tab PO 11/14/21 07:47 650 mg NOW ONE Administration Ibuprofen 600 mg 11/14/21 05:53 11/14/21 06:12 Ibuprofen 600 Mg Tab PO 11/14/21 05:54 600 mg ONETIME ONE Administration Potassium Chloride 40 meq 11/14/21 07:34 11/14/21 07:56 Potassium Chloride 20 Meq Tab.Er PO 11/14/21 07:35 40 meq ONETIME ONE Administration - Re-Assessments/Exams Free Text/Narrative Re-Assessment/Exam: 11/14/21 09:16 blood pressure is now 200/113 at the time of discharge. Decision made to start her on Norvasc 10 mg once daily and have her follow-up with primary care provider in 10 days time. She is likely going to require a second agent for hypertension control if her blood pressure remains this elevated. Sepsis Event Note (ED) - Focused Exam Vital Signs: Vital Signs Temp Pulse Resp BP Pulse Ox 11/14/21 08:30 108 H 18 200/113 H 98 11/14/21 05:29 36.6 C 135 H 32 H 228/139 H 98
[2021-11-14] MEDS ORDERED: Sodium Chloride 0.9% 1,000 ML IV SCH (06:00)
[2021-11-14] MEDS ORDERED: Potassium Chloride 20 MEQ Tab.ER PO ONE (07:34)
--- NOTE | 2021-11-14 07:41 | CT ---
CT chest Technique: Multiple axial sections through the chest were obtained. Intravenous contrast was utilized. Study has been performed as a pulmonary angiogram protocol. Comparison: No prior chest CT study is available, prior chest x-ray 06/30/20 is available. Findings: Pulmonary arteries are well opacified. No filling defects are seen to indicate pulmonary embolism. Thoracic aorta shows no aneurysm. Mediastinum shows no adenopathy. No axillary adenopathy is seen. No pericardial thickening is seen. Visualized upper abdominal structures show nothing acute. Lung window settings were reviewed. No acute parenchymal abnormality is seen within either lung. No pleural effusions are seen. Bone window settings were reviewed. No acute osseous abnormality is appreciated. Impression: 1. No findings of pulmonary embolism. 2. Nothing acute is appreciated on CT study of the chest. Diagnostic code #1
[2021-11-14] MEDS ORDERED: Acetaminophen 325 MG Tab PO ONE (07:46)
[2021-11-14 08:43] VITALS: BP 200/113; PULSE 108
== END 2021-11-14 08:30 | disposition home or self-care (01) ==
LOC: JD.ED 04:55
DX: R05.9 Cough, unspecified (principal); R51.9 Headache, unspecified; U09.9 Post COVID-19 condition, unspecified; R19.7 Diarrhea, unspecified; Z87.891 Personal history of nicotine dependence; Z88.8 Allergy status to other drugs, medicaments and biological substances; Z88.5 Allergy status to narcotic agent
CPT/HCPCS: 36415; 71275; 80048; 84484; 85007; 85027; 99284; A9270; J7030